=== PATIENT | female | born 1940 | race African-American/Black ===

== ENCOUNTER 2018-07-06 14:44 | Outpatient (CLI) | payer MEDICARE ==
--- NOTE | 2018-07-06 15:23 | RAD ---
CHEST TWO VIEWS: History: Chronic kidney disease. Anemia. FINDINGS: No comparison. Cardiac silhouette is unremarkable. Pulmonary vasculature upper limits of normal. Medi astinum is midline. No lobar consolidation, pneumothorax, or pleural fluid. Calcification over the ao rta. Motion artifact obscures detail on the lateral view. IMPRESSION: 1. Atherosclerosis. 2. No active cardiopulmonary abnormalities are otherwise demonstrated. POS: [facility]
== END 2018-07-06 14:45 | disposition home or self-care (01) ==
LOC: BICRAD 14:44
PROVIDERS: ATTEND Internal Medicine Medical Oncology
DX: N18.4 Chronic kidney disease, stage 4 (severe) (principal); D63.1 Anemia in chronic kidney disease; D50.0 Iron deficiency anemia secondary to blood loss (chronic); R11.2 Nausea with vomiting, unspecified; I70.0 Atherosclerosis of aorta
CPT/HCPCS: 36415; 71046; 82728

== ENCOUNTER 2018-11-16 16:18 | Observation (INO) | payer MEDICARE ==
[~2018-11-16 16:18] MED LIST: Heparin 10,000 UNITS/ 10 ML VIAL ONE
[2018-11-16 16:49] LABS: #Eosinphils 0.2 thou/uL (0.0-0.7); #Lymphocytes 0.8 thou/uL (1.20-3.40); #Monocytes 0.4 thou/uL (0.11-0.59); #Neutrophils 5.2 thou/uL (1.40-6.50); %Basophils 0.3 % (0.0-1.0); %Eosinophils 2.5 % (0.0-10.0); %Lymphocytes 12.5 % (21.0-51.0); %Monocytes 6.6 % (0.0-10.0); %Neutrophils 78.1 % (42.0-75.0); Hemoglobin 6.7 g/dL (12.0-16.0); Mean Corpuscular HGB CONC 32.7 g/dL (32.0-36.0); Mean Corpuscular Hemoglobin 30.1 pg (27.0-31.0); Mean Corpuscular Volume 92.1 fL (78.0-98.0); Mean Platelet Volume 7.6 fL (7.4-10.4); Platelet Count 187 thou/uL (130-400); RBC Distribution Width 15.9 % (11.5-14.5); Red Blood Cell (RBC) Count 2.21 mill/uL (4.20-5.40); White Blood Cell (WBC) Count 6.6 thou/uL (4.8-10.8)
--- NOTE | 2018-11-16 19:02 | RAD ---
XR Chest 1 View Portable History: [Shortness of breath] Comparison: Chest radiograph 2018 Findings: Dialysis catheter is in place with tip projecting over the azygos vein. Heart size is enlar ged. No pneumothorax. No effusion. No acute osseous abnormality. Impression: Dialysis catheter tip projecting over the azygos vein.
[2018-11-16 19:19] LABS: ALT (SGPT) 7 U/L (8-55); AST (SGOT) 9 U/L (5-34); Albumin 3.9 g/dL (3.4-4.8); Alkaline Phosphatase 58 U/L (40-150); Anion Gap 13 mmol/L (10-20); BUN (Urea Nitrogen) 32 mg/dL (9.8-20.1); Bilirubin, Total 0.3 mg/dL (0.2-1.2); Calc. Creatinine Clearance 0 mL/min (70-130); Calcium 8.7 mg/dL (7.8-10.44); Carbon Dioxide 28 mmol/L (23-31); Chloride 98 mmol/L (98-107); Estimated GFR-MDRD 13; Globulin 2.2 g/dL (2.4-3.5); Glucose 259 mg/dL (83-110); Potassium 4.5 mmol/L (3.5-5.1); Protein, Total 6.1 g/dL (6.0-8.3); Sodium 134 mmol/L (136-145)
[2018-11-16] MEDS ORDERED: Nitroglycerin 2% Ointment 1 INCH/1 GM Packet ONE ×2 (19:24→19:49)
[2018-11-16] MEDS ORDERED: Ondansetron PF 4 MG/2 ML Vial IVP PRN (19:58)
[2018-11-16] MEDS ORDERED: Acetaminophen 325 MG TAB PO PRN (19:58)
[2018-11-16] MEDS ORDERED: Ondansetron ODT 4 MG TAB PO PRN (19:58)
[2018-11-16 20:23] LABS: Hemoglobin 6.6 g/dL (12.0-16.0)
[2018-11-16] MEDS ORDERED: HumaLOG 300 UNITS/3 ML VIAL SC PRN (20:32)
[2018-11-16] MEDS ORDERED: Dextrose 50% Abboject 50 ML SYRINGE SLOW IVP PRN (20:32)
[2018-11-16] MEDS ORDERED: Dextrose 5% in Water 1,000 ML IV PRN (20:32)
[2018-11-16] MEDS ORDERED: Heparin 5,000 UNITS/ML VIAL SC SCH (21:00)
--- NOTE | 2018-11-16 21:25 | HP ---
PRIMARY CARE DOCTOR: Ana Dawson MD CODE STATUS: Full code. TIME OF EVALUATION: 7:40 p.m. CHIEF COMPLAINT: Shortness of breath and chest pain on exertion. HISTORY OF PRESENT ILLNESS: This is a 77-year-old female patient with past medical history of end-stage renal disease, chronic anemia, obese, started on hemodialysis on September, history of coronary artery disease, and diabetes, came to the hospital after having chest pain and shortness of breath with exertion that improved with rest. The patient reported this has happened in the past when she had a low hemoglobin. Dr. Issa has seen the patient and has sent the patient to the ER since it was found that the patient has severe anemia with hemoglobin in the range of 6. The symptoms were moderate to severe, limiting the patient's activities of daily living. REVIEW OF SYSTEMS: CONSTITUTIONAL: No fever or chills. The patient reported generalized weakness. RESPIRATORY: The patient had cough with scant, whitish sputum production, shortness of breath with exertion. CARDIOVASCULAR: Chest pain with exertion. No palpitation. GASTROINTESTINAL: No nausea, no vomiting, diarrhea, or abdominal pain. CAMPUS SAFETY OFFICER: No dizziness, headache, or feeling lightheaded. GENITOURINARY: No burning on urination. EXTREMITIES: Bilateral leg swelling. All other systems were reviewed and negative except for the findings as mentioned above. PAST MEDICAL HISTORY: As mentioned in the HPI. PAST SURGICAL HISTORY: Positive for cardiac stents x3, breast lumpectomy, and hysterectomy. PSYCH HISTORY: No previous psych history. SOCIAL HISTORY: No alcohol. No drugs. No smoking history. Lives at home with family. FAMILY HISTORY: Mother has diabetes and coronary artery disease. and father had heart problems. KNOWN ALLERGIES: Penicillin and sulfa. REPORTED MEDICATIONS: 1. Amlodipine. 2. Cetirizine. 3. Flonase. 4. Hydralazine. 5. Simvastatin. 6. Ranitidine. 7. Allopurinol. 8. Flecainide. 9. Benzonatate. 10. Terazosin. 11. Montelukast. PHYSICAL EXAMINATION: VITAL SIGNS: On presentation, blood pressure 167/57, heart rate 65, respiratory rate was 20, temperature 98.2, pain 0/10, and oxygen saturation was 99% on room air. GENERAL APPEARANCE: The patient is alert, oriented, not in acute distress. HEENT: Eyes, normal conjunctivae. Moist oral mucosa. Anicteric. No JVD. RESPIRATORY: Bilateral air entry. No rales. No wheezes. Symmetric expansion. CARDIOVASCULAR: Normal rate. Regular rhythm. No murmurs. No gallop. Leg edema 4+. ABDOMEN: Soft, normal bowel sounds. MUSCULOSKELETAL: Baseline range of motion and strength. No tenderness. SKIN: Warm, intact. No pallor. No rash. No redness. Peripheral pulses are present. Capillary refill seems to be intact. NEUROLOGIC: No evidence of any new focal weakness. Baseline speech. Cranial nerves seems to be intact. PSYCH: The patient is in good mood. No anxiety. Optimal judgment. IMAGING STUDIES: EKG was reviewed. The patient has normal sinus rhythm with a rate of 66 with NE 160, QRS 128, LBBB, QT corrected 475. Chest x-ray was reviewed. The patient has dialysis catheter tip projected with azygos vein. LABORATORY DATA: Labs were reviewed. The patient has white count 6.6; hemoglobin 6.7, second one 6.6; MCV 92; and platelet count 287. Chemistry; sodium 134, potassium 4.5, chloride 98, carbon dioxide 28, anion gap 13, BUN 32, creatinine 4.07, GFR 13, glucose 259, calcium 8.7, and total bilirubin 0.3. LFTs were negative. Troponin was negative. Beta natriuretic peptide 349. Serum total protein 6.1, albumin 3.9, globulin 2.2, and albumin to globulin ratio 1.8. ASSESSMENT AND PLAN: The patient will be placed in the hospital with following medical problems: 1. End-stage renal disease with chronic anemia. The patient follows with Dr. Issa as outpatient, on hemodialysis. We will need to hemolyze this patient. We will consult Dr. Issa for recommendations. 2. Symptomatic anemia. The patient has severe anemia with hemoglobin of 6.7 and dyspnea and chest pain on exertion that improved with rest. We will give blood transfusion with dialysis, and the patient seems to be in fluid overload. 3. Hyponatremia, sodium 139. This is likely dilutional. The patient will need hemodialysis. We will follow recommendations from Nephrology. No need for any further intervention at this point. 4. Coronary artery disease. This problem is chronic, seems to be stable. Chest pain likely related to severe anemia. We will treat underlying condition. 5. Uncontrolled diabetes. The patient presented with hyperglycemia and glucose 259. We will reconcile home medications, and we will place the patient on sliding scale. 6. Hyperlipidemia. Low-cholesterol diet is advised. 7. History of gout. Reconcile home medications. 8. Uncontrolled hypertension. Reconcile home medications. Adjust as needed. 9. Deep venous thrombosis prophylaxis. Job ID: [id number]
--- NOTE | 2018-11-16 22:04 | CON ---
DATE OF CONSULTATION: REASON FOR CONSULTATION: Stage 3 chronic kidney disease, anemia, as well as congestive heart failure. HISTORY: A 77-year-old female with a history of congestive heart failure, and thyroid surgery, presented to the hospital after noted to have a hemoglobin of less than 7 and dyspnea on exertion. The patient has a history of breast cancer and was advised not to get erythropoietin stimulating agent. PAST MEDICAL HISTORY: Breast cancer, hypertension, diabetes mellitus, coronary artery disease, congestive heart failure, stage 2 chronic kidney disease. PAST SURGICAL HISTORY: Reviewed. HOME MEDICATION: List reviewed. HOSPITAL MEDICATIONS: Reviewed. ALLERGIES: REVIEWED. REVIEW OF SYSTEMS: A 15-point review of systems was performed, negative except for positives noted above. GENERAL: HEAD: NECK: No swelling or lumps. NOSE: No epistaxis or discharge. EYES: No diplopia or pain. RESPIRATORY: CARDIOVASCULAR: GASTROINTESTINAL: /SHOES SALESPERSON: MUSCULOSKELETAL: No joint pain. NEUROPSYCHIATIC SYSTEMS: No suicidal ideation. No ideation. SKIN: Denies any rash or ulcer. CONSTITUTIONAL: No fever or chills. OBJECTIVE: CONSTITUTIONAL: Awake, alert, in no acute distress. VITAL SIGNS: Afebrile, pulse 75, breathing 16, blood pressure 130/85. GENERAL APPEARANCE AND MENTAL STATUS: Fair. HEAD/NECK: Normocephalic. Atraumatic. EYES: EOMI. No deformity. EARS: Clear. No ulcers. NOSE: Intact. No lesions. MOUTH: Clear. No discharge. THROAT: Clear. No exudate. LUNGS: Clear. No crackles. CARDIAC: S1, S2. No rub. ABDOMEN: Benign. Bowel sounds positive. GENITALIA/RECTUM: Rios absent. BACK/EXTREMITIES: Edema 0+. NEUROLOGICAL: Alert and motor intact. SKIN: LYMPHATICS: LABORATORY DATA: Reviewed. ASSESSMENT AND PLAN: 1. Stage 6 chronic kidney disease with volume overload and anemia. Plan dialysis and transfusion. 2. Anemia. Plan, transfusion with dialysis. 3. Hypertension, stable. Medication based on GFR appropriate. Job ID: [id number]
[2018-11-16 22:54] LABS: HBSAB Concentration 3.64 mIU/mL; Hep B Surf AB Non-Reactive (NonReactive)
[2018-11-17] LABS: Hep B Surf Ag NonReactive S/CO (NonReactive)
[2018-11-17 00:01] LABS: HBSAg Index 0.51 S/CO (0-0.99)
[2018-11-17 02:02] VITALS: BMI 38.3
[2018-11-17 02:45] LABS: #Eosinphils 0.2 thou/uL (0.0-0.7); #Lymphocytes 0.9 thou/uL (1.20-3.40); #Monocytes 0.5 thou/uL (0.11-0.59); #Neutrophils 4.7 thou/uL (1.40-6.50); %Basophils 0.7 % (0.0-1.0); %Eosinophils 2.7 % (0.0-10.0); %Lymphocytes 14.3 % (21.0-51.0); %Monocytes 8.1 % (0.0-10.0); %Neutrophils 74.2 % (42.0-75.0); Hemoglobin 8.1 g/dL (12.0-16.0); Mean Corpuscular HGB CONC 33.2 g/dL (32.0-36.0); Mean Corpuscular Volume 90.4 fL (78.0-98.0); Mean Platelet Volume 7.6 fL (7.4-10.4); Platelet Count 184 thou/uL (130-400); RBC Distribution Width 15.6 % (11.5-14.5); Red Blood Cell (RBC) Count 2.68 mill/uL (4.20-5.40); White Blood Cell (WBC) Count 6.3 thou/uL (4.8-10.8)
[2018-11-17 03:21] LABS: Anion Gap 13 mmol/L (10-20); BUN (Urea Nitrogen) 19 mg/dL (9.8-20.1); Calc. Creatinine Clearance 30 mL/min (70-130); Calcium 8.8 mg/dL (7.8-10.44); Carbon Dioxide 28 mmol/L (23-31); Chloride 100 mmol/L (98-107); Estimated GFR-MDRD 20; Glucose 275 mg/dL (83-110); Potassium 3.9 mmol/L (3.5-5.1); Sodium 137 mmol/L (136-145)
[2018-11-17] MEDS ORDERED: Loperamide HCl 2 MG CAP PO PRN (07:43)
[2018-11-17] MEDS ORDERED: hydrALAZINE 20 MG/ML VIAL SLOW IVP PRN (07:43)
[2018-11-17] MEDS ORDERED: Loratadine 10 MG TAB PO PRN (07:43)
[2018-11-17] MEDS ORDERED: Bisacodyl 5 MG TAB PO PRN (07:43)
[2018-11-17] MEDS ORDERED: Artificial Tears 18 DROP/0.9 ML EA EYE PRN (07:43)
[2018-11-17] MEDS ORDERED: Diabetic Tussin 200 MG/10 ML UDCUP PO PRN (07:43)
[2018-11-17] MEDS ORDERED: Cepastat Lozenges 1 LOZ PO PRN (07:43)
[2018-11-17] MEDS ORDERED: Eucerin (Mineral Oil/Petrolatum,White) 30 gm Jar TOP PRN (07:43)
[2018-11-17] MEDS ORDERED: Sodium Chloride 0.65% Nasal 44 ML BOT EA NARE PRN (07:43)
[2018-11-17] MEDS ORDERED: Zolpidem Tartrate 5 MG TAB PO PRN (07:43)
[2018-11-17] MEDS ORDERED: Ferrous Sulfate 325 MG TAB PO SCH (08:00)
[2018-11-17] MEDS ORDERED: Heparin 10,000 UNITS/ 10 ML VIAL ONE (08:04)
[2018-11-17] MEDS: Flecainide 50 MG TAB PO SCH ×2 (08:13→20:02)
[2018-11-17] MEDS: hydrALAZINE 25 MG TAB PO SCH ×3 (08:13→20:01)
[2018-11-17] MEDS: Amlodipine 5 MG TAB PO SCH ×2 (08:13→20:04)
[2018-11-17 08:37] LABS: Iron 59 ug/dL (50-170); Iron Binding Capacity, Total 300 mcg/dL (265-497)
[2018-11-17] MEDS ORDERED: Terazosin HCl 1 MG CAP PO SCH (09:00)
[2018-11-17] MEDS ORDERED: Allopurinol 100 MG TAB PO SCH (09:00)
[2018-11-17] MEDS ORDERED: Montelukast Sodium 10 mg Tablet PO SCH (09:00)
[2018-11-17] MEDS ORDERED: Senokot S 8.6-50 MG TAB PO PRN (09:00)
[2018-11-17 09:02] LABS: Ferritin 128.25 ng/mL (10-291); Thyroid Stimulating Hormone 1.6101 uIU/mL (0.35-4.94)
[2018-11-17] MEDS: Fluticasone Propionate Nasal Spray 16 gm Bottle NASAL SCH ×2 (09:22→20:06)
[2018-11-17] MEDS ORDERED: Iron, Sodium Ferric Gluconate 250 MG in Sodium Chloride 0.9% 250 ML 250 ML IVPB SCH (10:30)
--- NOTE | 2018-11-17 10:37 | PRG ---
DATE OF SERVICE: 11/17/2018 SUBJECTIVE: A 77-year-old female, being seen for end-stage renal disease. The patient denied nausea, vomiting, or chest pain. OBJECTIVE: CONSTITUTIONAL: The patient is awake and alert. VITAL SIGNS: Afebrile. Pulse 56, breathing 16, blood pressure GENERAL APPEARANCE AND MENTAL STATUS: Fair. HEAD/NECK: Normocephalic. Atraumatic. EYES: EOMI. No deformity. EARS: Clear. No ulcers. NOSE: Intact. No lesions. MOUTH: Clear. No discharge. THROAT: Clear. No exudate. LUNGS: Clear. No crackles. CARDIAC: S1, S2. No rub. ABDOMEN: Benign. Bowel sounds positive. GENITALIA/RECTUM: Rios absent. BACK/EXTREMITIES: Edema 0+. NEUROLOGICAL: Alert and motor intact. SKIN: LYMPHATICS: LABORATORY DATA: Labs showed hemoglobin 8. ASSESSMENT AND PLAN: 1. Stage 6 chronic kidney disease, plan dialysis per schedule. 2. Anemia. We will transfuse one more unit. 3. Hypertension, stable. 4. Medications based on GFR appropriate. Job ID: [id number]
--- NOTE | 2018-11-17 10:49 | PDOC.PN ---
- Subjective Encounter Start Date: 11/17/18 Encounter Start Time: 09:00 -: old records requested/rev Patient seen and examined. No new complaints. No overnight events - Objective Resuscitation Status - Order Detail: 11/16/18 19:58 Resuscitation Status Routine Resuscitation Status: FULL: Full Resuscitation MAR Reviewed: Yes Vital Signs & Weight: Vital Signs (12 hours) Temp Pulse Resp BP Pulse Ox 11/17/18 08:13 56 L 11/17/18 07:36 98.6 F 56 L 16 124/61 97 11/17/18 04:46 98.4 F 63 18 153/52 H 95 11/17/18 00:45 98.1 F 61 18 157/52 H 96 Weight Weight 245 lb I&O: 11/16/18 11/17/18 11/18/18 06:59 06:59 06:59 Intake Total 410 240 Balance 410 240 Result Diagrams: 11/17/18 08:00 11/17/18 02:35 Additional Labs: Accuchecks 11/17/18 11/17/18 04:50 01:17 POC Glucose 295 H 181 H Phys Exam - Physical Examination Constitutional: NAD HEENT: PERRLA, moist MMs, sclera anicteric Neck: no JVD, supple Respiratory: no wheezing, no rales, no rhonchi Cardiovascular: RRR, no significant murmur, no rub Gastrointestinal: soft, non-tender, no distention, positive bowel sounds obesity+ Musculoskeletal: no edema, pulses present Neurological: non-focal, normal sensation, moves all 4 limbs Lymphatic: no nodes Psychiatric: normal affect, A&O x 3 Skin: no rash, normal turgor Dx/Plan (1) Symptomatic anemia Code(s): D64.9 - ANEMIA, UNSPECIFIED Status: Acute (2) Asthma Code(s): J45.909 - UNSPECIFIED ASTHMA, UNCOMPLICATED Status: Chronic (3) CAD (coronary artery disease) Code(s): I25.10 - ATHSCL HEART DISEASE OF [place] CORONARY ARTERY W/O ANG PCTRS Status: Chronic (4) Dyslipidemia Code(s): E78.5 - HYPERLIPIDEMIA, UNSPECIFIED Status: Chronic (5) ESRD (end stage renal disease) on dialysis Code(s): N18.6 - END STAGE RENAL DISEASE; Z99.2 - DEPENDENCE ON RENAL DIALYSIS Status: Chronic (6) GERD (gastroesophageal reflux disease) Code(s): K21.9 - GASTRO-ESOPHAGEAL REFLUX DISEASE WITHOUT ESOPHAGITIS Status: Chronic (7) Gout Code(s): M10.9 - GOUT, UNSPECIFIED Status: Chronic (8) Hypertension Code(s): I10 - ESSENTIAL (PRIMARY) HYPERTENSION Status: Chronic (9) Obesity (BMI 30-39.9) Code(s): E66.9 - OBESITY, UNSPECIFIED Status: Chronic - Plan cont current plan of care, plan discussed w/ family * iron study ordered * will give one dose of venofer * nephrology transfusing one PRBC today with HD * she had colonoscopy done in 2 years and she is advised to follow up with her GI Dr Kinney for possible need of repeat testing vs capsule endoscopy * possible discharge to later on today if OK. * medication reviewed as below * symptomatic treatment Review of Systems - Review of Systems ENT: negative: Ear Pain, Ear Discharge, Nose Pain, Nose Discharge, Nose Congestion, Mouth Pain, Mouth Swelling, Throat Pain, Throat Swelling, Other Respiratory: negative: Cough, Dry, Shortness of Breath, Hemoptysis, SOB with Excertion, Pleuritic Pain, Sputum, Wheezing Cardiovascular: negative: chest pain, palpitations, orthopnea, paroxysmal nocturnal dyspnea, edema, light headedness, other Gastrointestinal: negative: Nausea, Vomiting, Abdominal Pain, Diarrhea, Constipation, Melena, Hematochezia, Other Genitourinary: negative: Dysuria, Frequency, Incontinence, Hematuria, Retention , Other Musculoskeletal: negative: Neck Pain, Shoulder Pain, Arm Pain, Back Pain, Hand Pain, Leg Pain, Foot Pain, Other Skin: negative: Rash, Lesions, Reece, Bruising, Other - Medications/Allergies Allergies/Adverse Reactions: Allergies Allergy/AdvReac Type Severity Reaction Status Date / Time Penicillins Allergy Verified 11/17/18 02:06 Sulfa (Sulfonamide Allergy Verified 11/17/18 02:06 Antibiotics) Medications: Current Medications Acetaminophen (Tylenol) 650 mg PO Q4H PRN PRN Reason: Headache/Fever/Mild Pain (1-3) Last Admin: 11/17/18 04:53 Dose: 650 mg Albuterol/Ipratropium (Duoneb) 3 ml NEB Q6H PRN PRN Reason: SOB &/or Wheezing Allopurinol (Zyloprim) 100 mg PO DAILY [facility] Last Admin: 11/17/18 08:12 Dose: 100 mg Amlodipine Besylate (Norvasc) 2.5 mg PO BID [facility] Last Admin: 11/17/18 08:13 Dose: 2.5 mg Artificial Tears (Tears Naturale) 2 drop EA EYE PRN PRN PRN Reason: Dry Eyes Atorvastatin Calcium (Lipitor) 20 mg PO [facility] Bisacodyl (Dulcolax) 10 mg PO DAILYPRN PRN PRN Reason: Constipation Dextrose/Water (Dextrose 50%) 25 gm SLOW IVP PRN PRN PRN Reason: Hypoglycemia Ferrous Sulfate (Feosol) 325 mg PO [facility] Last Admin: 11/17/18 08:13 Dose: 325 mg Flecainide Acetate (Tambocor) 100 mg PO BID [facility] Last Admin: 11/17/18 08:13 Dose: 100 mg Fluticasone Propionate (Flonase Nasal Malcolm) 0 gm NASAL BID [facility] Last Admin: 11/17/18 09:22 Dose: 1 spr Glucagon (Glucagon) 1 mg IM PRN PRN PRN Reason: Hypoglycemia Guaifenesin (Robitussin Sf) 200 mg PO Q4H PRN PRN Reason: Cough Hydralazine HCl (Apresoline) 50 mg PO TID [facility] Last Admin: 11/17/18 08:13 Dose: 50 mg Hydralazine HCl (Apresoline) 10 mg SLOW IVP Q4H PRN PRN Reason: SBP > 180 and HR < 70 Dextrose/Water (D5w) 1,000 mls @ 0 mls/hr IV .Q0M PRN PRN Reason: Hypoglycemia Ferric Sodium Gluconate Complex 250 mg/ Sodium Chloride 270 mls @ 129.808 mls/ hr IVPB NOW [facility] Stop: 11/17/18 13:30 Insulin Human Lispro (Humalog) 0 units SC .MILD SLIDING SCALE PRN PRN Reason: Mild Correctional Scale Loperamide HCl (Imodium) 2 mg PO PRN PRN PRN Reason: Diarrhea/Loose Stools Loratadine (Claritin) 10 mg PO DAILYPRN PRN PRN Reason: Sinus Symptoms Mineral Oil/White Petrolatum (Eucerin Cream) 0 gm TOP BIDPRN PRN PRN Reason: Dry Skin Montelukast Sodium (Singulair) 10 mg PO DAILY [facility] Last Admin: 11/17/18 08:13 Dose: 10 mg Ondansetron HCl (Zofran Odt) 4 mg PO Q6H PRN PRN Reason: Nausea/Vomiting Ondansetron HCl (Zofran) 4 mg IVP Q6H PRN PRN Reason: Nausea/Vomiting Senna/Docusate Sodium (Senokot S) 2 tab PO BID PRN PRN Reason: Constipation Sodium Chloride ([place] Nasal Malcolm 0.65%) 0 ml EA NARE QIDPRN PRN PRN Reason: Nasal Congestion Terazosin HCl (Hytrin) 4 mg PO DAILY [facility] Last Admin: 11/17/18 09:21 Dose: 4 mg Throat Lozenges (Cepastat Lozenges) 1 sara PO Q2H PRN PRN Reason: Sore Throat Zolpidem Tartrate (Ambien) 5 mg PO HSPRN PRN PRN Reason: Insomnia
[2018-11-17] MEDS ORDERED: Iron, Sodium Ferric Gluconate 250 MG in Sodium Chloride 0.9% 100 ML IVPB SCH (11:00)
--- NOTE | 2018-11-17 12:12 | DIS ---
DATE OF ADMISSION: 11/16/2018 DATE OF DISCHARGE: 11/17/2018 PRIMARY CARE PHYSICIAN: Ana Dawson MD DISCHARGE DISPOSITION: Home. PRIMARY DISCHARGE DIAGNOSIS: Symptomatic anemia status post transfusion. SECONDARY DISCHARGE DIAGNOSES: 1. Obesity with BMI of 38. 2. Hypertension. 3. Gout. 4. Gastroesophageal reflux disease. 5. ESRD, on hemodialysis. 6. Dyslipidemia. 7. Coronary artery disease. 8. Asthma. PRIMARY PROCEDURE/OPERATION: Maintenance hemodialysis. RADIOLOGICAL INVESTIGATION: Chest x-ray. SIGNIFICANT LABORATORY DATA: Hemoglobin 8.0, creatinine 2.85, ferritin 128, and TSH 1.61. DISCHARGE MEDICATIONS: 1. Allopurinol 100 mg daily. 2. Norvasc 2.5 mg b.i.d. 3. Cetirizine 10 mg daily. 4. Tessalon 200 mg t.i.d. p.r.n. 5. Flecainide 100 mg b.i.d. 6. Flonase nasal spray daily. 7. Hydralazine 50 mg t.i.d. 8. Singulair 10 mg daily. 9. Ranitidine 150 mg p.o. b.i.d. 10. Zocor 40 mg p.o. nightly. 11. Terazosin 2 mg p.o. daily. 12. Ferrous sulfate 325 mg p.o. daily. CONTRAINDICATION: None. CODE STATUS: Full code. INPATIENT BOLT HEADER: Dr. Issa. TEST RESULTS PENDING ON DISCHARGE: None. ALLERGIES: PENICILLIN AND SULFA DRUGS. DISCHARGE PLAN: Posthospital, the patient will follow up with Dr. Ana Dawson. The patient will follow up with Dr. Dawson, electrical and instrument mechanic as well. HOSPITAL COURSE: A 77-year-old female, who was admitted by Dr. Chung. Please see his H and P for further details. The patient was admitted for symptomatic anemia. Her hemoglobin was 6.6 while in hospital. She required total 2 units of blood transfusion and she is also going to get another unit of blood transfusion today and she is also receiving iron infusion. This patient already had colonoscopy within a couple of years. It showed some AV malformation, which was cauterized by Dr. Dawson as per the patient. This patient, I am suspecting that she might have chronic oozing of blood as well as she has ESRD and that is also contributing to her anemia. She stopped taking Procrit injection after diagnosis of breast cancer. At this point, the patient has given enough blood transfusion and she will follow up with electrical and instrument mechanic as an outpatient basis. She does not prefer anything to be done while in hospital other than symptomatic treatment. While in hospital, she had dialysis by Dr. Issa. The patient is seen and examined at bedside today. Please see my progress note from today for further detail. Job ID: [id number]
[2018-11-17 14:19] LABS: Hemoglobin 8.3 g/dL (12.0-16.0)
[2018-11-17 20:00] VITALS: BP 147/62; TEMP 98.3
[2018-11-17] MEDS ORDERED: Atorvastatin Calcium 20 MG TAB PO SCH (21:00)
== END 2018-11-17 20:45 | disposition home or self-care (01) ==
LOC: ERS 16:18 → T4-B 19:30
PROVIDERS: ADMIT Hospitalist; ATTEND Hospitalist
DX: I13.11 Hypertensive heart and chronic kidney disease without heart failure, with stage 5 chronic kidney disease, or end stage renal disease (principal); E11.22 Type 2 diabetes mellitus with diabetic chronic kidney disease; N18.6 End stage renal disease; I50.9 Heart failure, unspecified; D63.1 Anemia in chronic kidney disease; E66.9 Obesity, unspecified; E78.5 Hyperlipidemia, unspecified; I25.10 Atherosclerotic heart disease of native coronary artery without angina pectoris; J45.909 Unspecified asthma, uncomplicated; Z68.38 Body mass index [BMI] 38.0-38.9, adult; Z79.51 Long term (current) use of inhaled steroids; Z79.899 Other long term (current) drug therapy; Z88.0 Allergy status to penicillin; Z88.2 Allergy status to sulfonamides; Z99.2 Dependence on renal dialysis
CPT/HCPCS: 36430; 71045; 80048; 80053; 82728; 82962; 83540; 83550; 83880; 84443; 84484; 85014 ×2; 85018 ×2; 85025 ×2; 86706; 86850; 86900; 86901; 86920; 87340; 93005; 94640; 99285; G0378 ×2; P9016 ×2; 36415; 36416; 90935; G0257; J1644; J2916; J3490; J7050; J7620

== ENCOUNTER 2018-12-11 11:49 | Emergency (ER) | payer MEDICARE ==
[2018-12-11 12:39] LABS: #Eosinphils 0.1 thou/uL (0.0-0.7); #Lymphocytes 0.9 thou/uL (1.20-3.40); #Monocytes 0.4 thou/uL (0.11-0.59); #Neutrophils 4.3 thou/uL (1.40-6.50); %Basophils 0.1 % (0.0-1.0); %Eosinophils 2.6 % (0.0-10.0); %Lymphocytes 15.1 % (21.0-51.0); %Monocytes 6.9 % (0.0-10.0); %Neutrophils 75.2 % (42.0-75.0); Mean Corpuscular HGB CONC 33.3 g/dL (32.0-36.0); Mean Corpuscular Hemoglobin 30.4 pg (27.0-31.0); Mean Corpuscular Volume 91.3 fL (78.0-98.0); Mean Platelet Volume 7.1 fL (7.4-10.4); Platelet Count 186 thou/uL (130-400); RBC Distribution Width 14.1 % (11.5-14.5); Red Blood Cell (RBC) Count 2.64 mill/uL (4.20-5.40); White Blood Cell (WBC) Count 5.7 thou/uL (4.8-10.8)
[2018-12-11 13:01] LABS: ALT (SGPT) Less than 7 U/L (8-55); AST (SGOT) 11 U/L (5-34); Albumin 3.9 g/dL (3.4-4.8); Alkaline Phosphatase 50 U/L (40-150); Anion Gap 9 mmol/L (10-20); BUN (Urea Nitrogen) 15 mg/dL (9.8-20.1); Bilirubin, Total 0.4 mg/dL (0.2-1.2); Calc. Creatinine Clearance 0 mL/min (70-130); Calcium 8.9 mg/dL (7.8-10.44); Carbon Dioxide 31 mmol/L (23-31); Chloride 99 mmol/L (98-107); Estimated GFR-MDRD 24; Globulin 2.5 g/dL (2.4-3.5); Glucose 126 mg/dL (83-110); Potassium 3.6 mmol/L (3.5-5.1); Protein, Total 6.4 g/dL (6.0-8.3); Sodium 135 mmol/L (136-145)
[2018-12-11] MEDS ORDERED: Heparin 10,000 UNITS/ 10 ML VIAL ONE (15:00)
--- NOTE | 2018-12-11 16:19 | RAD ---
Chest AP view INDICATION: Dyspnea on exertion COMPARISON: November 16, 2018 FINDINGS: Lungs:No confluent airspace opacity is present. Cardiac silhouette pulmonary vasculature:Moderate cardiomegaly and mild pulmonary vascular congestion are stable. There is a stable left IJ dialysis catheter. Pleural spaces:No pleural effusion or pneumothorax is demonstrated. Upper abdomen:No abnormality seen. Osseous structures: No acute osseous abnormality. Additional findings:None. IMPRESSION: Stable moderate cardiomegaly and mild pulmonary vascular congestion.
== END 2018-12-11 20:14 | disposition home or self-care (01) ==
LOC: ERS 11:49
DX: D64.9 Anemia, unspecified (principal); N18.6 End stage renal disease; I25.10 Atherosclerotic heart disease of native coronary artery without angina pectoris; E11.22 Type 2 diabetes mellitus with diabetic chronic kidney disease; I50.9 Heart failure, unspecified; J44.9 Chronic obstructive pulmonary disease, unspecified; J45.909 Unspecified asthma, uncomplicated; Z79.899 Other long term (current) drug therapy
CPT/HCPCS: 36430; 71045; 80053; 82962; 84484; 85025; 86850; 86900; 86901; 86920; 93005; 94640; P9016; 36415; 36416; J1644; J7620

== ENCOUNTER 2019-01-23 06:40 | Outpatient (CLI) | payer MEDICARE ==
--- NOTE | 2019-01-23 09:52 | CT ---
CT ABDOMEN AND PELVIS PERFORMED WITH AND WITHOUT CONTRAST ENHANCEMENT: Date: 01/23/19 HISTORY: Hematuria. Patient is also on dialysis. FINDINGS: The lung bases are clear. The liver, spleen, pancreas, and gallbladder regions appear unremarkable. Right and left adrenal glands, and right and left kidneys are within normal limits of size. There are no renal calculi demonstrated. There is somewhat diminished excretion with some contrast seen in the left collecting system. No definite contrast within the right collecting system on the portal venous phase imaging. No cystic or solid masses. Kidneys are within normal limits of size, slightly larger than right, somewhat difficult to measure due to the obliquity. There is no significant periaortic or mesenteric adenopathy. Small hiatal hernia is present. CT of pelvis was performed with and without contrast enhancement. The bladder is never fully distende d. There is no adenopathy, mass, or free fluid. IMPRESSION: 1. Diminished excretion from the kidneys consistent with history of dialysis. No renal calculi and n o evidence of any masses. 2. Small hiatal hernia. POS: OFF
== END 2019-01-23 06:41 | disposition home or self-care (01) ==
LOC: SCSCT 06:40
PROVIDERS: ATTEND Urology
DX: R31.9 Hematuria, unspecified (principal); K44.9 Diaphragmatic hernia without obstruction or gangrene; Z99.2 Dependence on renal dialysis
CPT/HCPCS: 74178

== ENCOUNTER 2019-09-26 11:27 | Outpatient (CLI) | payer MEDICARE ==
--- NOTE | 2019-09-26 11:44 | RAD ---
XR Chest Pa Lat @ [facility] HISTORY: Dyspnea COMPARISON: 12/11/2018 exam. FINDINGS: Heart size is within normal limits. There are atherosclerotic changes of the aorta. A right -sided brachiocephalic stent is noted. The lungs are clear of infiltrative process. IMPRESSION: No active intrathoracic disease.
== END 2019-09-26 11:28 | disposition home or self-care (01) ==
LOC: RAD 11:27
PROVIDERS: ATTEND Internal Medicine Critical Care Medicine
DX: R06.00 Dyspnea, unspecified (principal)
CPT/HCPCS: 71046

== ENCOUNTER 2021-08-26 11:26 | Outpatient (CLI) | payer MEDICARE | END 2021-08-26 11:27 | disposition home or self-care (01) | LOC: SCSMRI 11:26 | PROVIDERS: ATTEND Internal Medicine | DX: M47.22 Other spondylosis with radiculopathy, cervical region (principal) | CPT/HCPCS: 72141 ==

== ENCOUNTER 2023-02-22 09:08 | Outpatient (CLI) | payer MEDICARE | END 2023-02-22 09:09 | disposition home or self-care (01) | LOC: RAD 09:08 | PROVIDERS: ATTEND Internal Medicine Critical Care Medicine | DX: R06.00 Dyspnea, unspecified (principal) | CPT/HCPCS: 36415; 71046; 80053; 80061; 81001; 83036; 84443; 87086 ==

== ENCOUNTER 2024-04-27 22:23 | Inpatient (IN) | payer MEDICARE ==
[2024-04-27 23:52] VITALS: BMI 34.9
[2024-04-28] MEDS ORDERED: Dextrose 50% Abboject 50 ML SYRINGE SLOW IVP PRN (00:03)
[2024-04-28] MEDS ORDERED: Acetaminophen 325 MG TAB PO PRN (00:03)
[2024-04-28] MEDS ORDERED: Dextrose 5% in Water 1,000 ML IV PRN (00:03)
[2024-04-28] MEDS ORDERED: Glucagon 1 MG/ML KIT IM PRN (00:03)
[2024-04-28] MEDS ORDERED: Ondansetron ODT 4 MG TAB PO PRN (00:03)
[2024-04-28] MEDS ORDERED: Ondansetron PF 4 MG/2 ML Vial IVP PRN (00:03)
[2024-04-28] MEDS: Insulin Lispro 100 UNIT/ML 10 ML VIAL SC PRN ×2 (00:39→06:31)
[2024-04-28 00:47] LABS: #Basophils 0.03 10x3/uL (0.0-0.2); %Basophils 0.6 % (0.0-1.0); %Eosinophils 2.2 % (0.0-10.0); %Lymphocytes 12.2 % (21.0-51.0); %Monocytes 8.8 % (0.0-10.0); Hematocrit 22.1 % (36.0-47.0); Hemoglobin 6.9 g/dL (12.0-16.0); Mean Corpuscular HGB CONC 31.2 g/dL (32.0-36.0); Mean Corpuscular Hemoglobin 29.2 pg (27.0-31.0); Mean Corpuscular Volume 93.6 fL (78.0-98.0); Mean Platelet Volume 10.3 fL (7.4-10.4); Platelet Count 178 10x3/uL (130-400); RBC Distribution Width 15.6 % (11.5-14.5); Red Blood Cell (RBC) Count 2.36 mill/uL (4.20-5.40)
[2024-04-28 00:52] LABS: Prothrombin Time 12.9 sec (12.0-14.7)
[2024-04-28 00:53] LABS: PTT 25.8 sec (22.9-36.1)
[2024-04-28 01:38] LABS: Anion Gap 15 mmol/L (10-20); BUN (Urea Nitrogen) 25 mg/dL (9.8-20.1); Calc. Creatinine Clearance 16 mL/min (70-130); Calcium 8.7 mg/dL (7.8-10.44); Carbon Dioxide 28 mmol/L (23-31); Chloride 97 mmol/L (98-107); Estimated GFR 9; Glucose 351 mg/dL (83-110); Iron 30 ug/dL (50-170); Iron Binding Capacity, Total 203 mcg/dL (265-497); Sodium 136 mmol/L (136-145)
[2024-04-28] MEDS: Ipratropium/Albuterol 3 ML NEB NEB PRN (02:19)
[2024-04-28 08:14] LABS: Hematocrit 25.5 % (36.0-47.0); Hemoglobin 8.2 g/dL (12.0-16.0)
[2024-04-28] MEDS: Montelukast Sodium 10 mg Tablet PO SCH (08:57)
[2024-04-28] MEDS: hydrALAZINE 25 MG TAB PO SCH (08:57)
[2024-04-28] MEDS: Loratadine 10 MG TAB PO SCH (08:57)
[2024-04-28] MEDS: Amlodipine 10 MG TAB PO SCH (08:58)
[2024-04-28] MEDS: Amiodarone 200 MG TAB PO SCH (08:58)
[2024-04-28] MEDS: Fluticasone Propionate Nasal Spray 16 gm Bottle NASAL SCH (08:59)
[2024-04-28] MEDS: Pantoprazole 40 MG VIAL IVP SCH (08:59)
[2024-04-28] MEDS: Sodium Ferric Gluconate 125 MG in Sodium Chloride 0.9% 100 ML IVPB SCH (08:59)
[2024-04-28] MEDS ORDERED: Sodium Ferric Gluconate 125 MG in Sodium Chloride 0.9% 100 ML IVPB SCH (09:00)
[2024-04-28 10:40] LABS: #Basophils 0.03 10x3/uL (0.0-0.2); %Basophils 0.4 % (0.0-1.0); %Eosinophils 2.7 % (0.0-10.0); %Lymphocytes 10.1 % (21.0-51.0); %Monocytes 9.5 % (0.0-10.0); %Neutrophils 76.9 % (42.0-75.0); Hematocrit 24.6 % (36.0-47.0); Hemoglobin 7.9 g/dL (12.0-16.0); Mean Corpuscular HGB CONC 32.1 g/dL (32.0-36.0); Mean Corpuscular Hemoglobin 30.3 pg (27.0-31.0); Mean Corpuscular Volume 94.3 fL (78.0-98.0); Mean Platelet Volume 9.8 fL (7.4-10.4); Platelet Count 184 10x3/uL (130-400); RBC Distribution Width 15.1 % (11.5-14.5); Red Blood Cell (RBC) Count 2.61 mill/uL (4.20-5.40)
[2024-04-28 11:06] LABS: Anion Gap 12 mmol/L (10-20); BUN (Urea Nitrogen) 30 mg/dL (9.8-20.1); Calc. Creatinine Clearance 14 mL/min (70-130); Calcium 8.7 mg/dL (7.8-10.44); Carbon Dioxide 32 mmol/L (23-31); Chloride 95 mmol/L (98-107); Estimated GFR 8; Glucose 181 mg/dL (83-110); Potassium 3.8 mmol/L (3.5-5.1); Sodium 135 mmol/L (136-145)
[2024-04-28] MEDS: EPOETIN ALFA-EPBX (ESRD) 10,000 UNITS/ML VIAL SC SCH (14:22)
[2024-04-28 15:07] LABS: Hematocrit 24.9 % (36.0-47.0); Hemoglobin 8.1 g/dL (12.0-16.0)
[2024-04-28] MEDS: methylPREDNISolone Sod Succ 40 MG VIAL IVP SCH (17:36)
[2024-04-28] MEDS: Benzonatate 100 MG CAP PO PRN (17:43)
[2024-04-28] MEDS: Ipratropium/Albuterol 3 ML NEB NEB SCH (18:43)
[2024-04-28] MEDS: Atorvastatin Calcium 40 MG TAB PO SCH (21:23)
[2024-04-28] MEDS: Losartan 25 MG TAB PO SCH (21:23)
[2024-04-28] MEDS: Terazosin HCl 1 MG CAP PO SCH (21:23)
[2024-04-28 22:57] LABS: Hematocrit 27.2 % (36.0-47.0); Hemoglobin 8.8 g/dL (12.0-16.0)
[2024-04-29 04:59] LABS: #Basophils Less than 0.03 10x3/uL (0.0-0.2); #Eosinophils Less than 0.03 10x3/uL (0.0-0.7); %Basophils 0.1 % (0.0-1.0); %Lymphocytes 4.1 % (21.0-51.0); %Monocytes 1.8 % (0.0-10.0); %Neutrophils 93.3 % (42.0-75.0); Anion Gap 15 mmol/L (10-20); BUN (Urea Nitrogen) 46 mg/dL (9.8-20.1); Calc. Creatinine Clearance 10 mL/min (70-130); Calcium 8.7 mg/dL (7.8-10.44); Carbon Dioxide 27 mmol/L (23-31); Chloride 93 mmol/L (98-107); Estimated GFR 5; Glucose 329 mg/dL (83-110); Hematocrit 25.6 % (36.0-47.0); Hemoglobin 8.3 g/dL (12.0-16.0); Mean Corpuscular HGB CONC 32.4 g/dL (32.0-36.0); Mean Corpuscular Hemoglobin 30.4 pg (27.0-31.0); Mean Corpuscular Volume 93.8 fL (78.0-98.0); Mean Platelet Volume 10.2 fL (7.4-10.4); Platelet Count 202 10x3/uL (130-400); Potassium 4.3 mmol/L (3.5-5.1); RBC Distribution Width 15.1 % (11.5-14.5); Red Blood Cell (RBC) Count 2.73 mill/uL (4.20-5.40); Sodium 131 mmol/L (136-145)
[2024-04-29] MEDS: Amiodarone 200 MG TAB PO SCH (08:50)
[2024-04-29] MEDS: methylPREDNISolone Sod Succ 40 MG VIAL IVP SCH ×2 (08:52→21:03)
[2024-04-29] MEDS: Fluticasone Propionate Nasal Spray 16 gm Bottle NASAL SCH (08:52)
[2024-04-29] MEDS ORDERED: PROPOFOL 20 ML ONE (11:47)
[2024-04-29] MEDS: Furosemide 80 MG TAB PO SCH (18:15)
[2024-04-29] MEDS: hydrALAZINE 20 MG/ML VIAL SLOW IVP PRN (18:16)
[2024-04-29] MEDS: Apixaban 2.5 MG TAB PO SCH (21:03)
[2024-04-30 04:57] LABS: #Basophils Less than 0.03 10x3/uL (0.0-0.2); #Eosinophils Less than 0.03 10x3/uL (0.0-0.7); %Basophils 0.1 % (0.0-1.0); %Lymphocytes 3.4 % (21.0-51.0); %Monocytes 3.5 % (0.0-10.0); %Neutrophils 91.6 % (42.0-75.0); Hematocrit 26.2 % (36.0-47.0); Hemoglobin 8.7 g/dL (12.0-16.0); Mean Corpuscular HGB CONC 33.2 g/dL (32.0-36.0); Mean Corpuscular Hemoglobin 29.9 pg (27.0-31.0); Mean Platelet Volume 10.3 fL (7.4-10.4); Platelet Count 192 10x3/uL (130-400); RBC Distribution Width 15.2 % (11.5-14.5); Red Blood Cell (RBC) Count 2.91 mill/uL (4.20-5.40)
[2024-04-30 05:18] LABS: Anion Gap 17 mmol/L (10-20); BUN (Urea Nitrogen) 65 mg/dL (9.8-20.1); Calc. Creatinine Clearance 9 mL/min (70-130); Calcium 8.5 mg/dL (7.8-10.44); Carbon Dioxide 25 mmol/L (23-31); Chloride 90 mmol/L (98-107); Estimated GFR 4; Glucose 356 mg/dL (83-110); Potassium 5.1 mmol/L (3.5-5.1); Sodium 127 mmol/L (136-145)
[2024-04-30] MEDS ORDERED: Lidocaine 2% 6 ML (Jelly) SYR TOP PRN (08:33)
[2024-04-30 08:50] LABS: HBSAB Concentration 13.58 mIU/mL; HBsAg Index 0.28 S/CO (0-0.99); Hep B Core Total Ab NONREACTIVE (NonReactive); Hep B Core Total Index 0.05 S/CO (0-0.79); Hep B Surf AB REACTIVE (NonReactive); Hep B Surf Ag NONREACTIVE S/CO (NonReactive); Hep C IgG Ab NONREACTIVE S/CO (NonReactive); Hep C Index 0.04 S/CO (0-0.79)
[2024-04-30] MEDS ORDERED: Heparin 10,000 UNITS/ 10 ML VIAL ONE (08:55)
[2024-04-30] MEDS: Lidocaine-Prilocaine 2.5% Cream 5 GM TUBE TOP PRN (09:10)
[2024-04-30] MEDS: Furosemide 80 MG TAB PO SCH (09:10)
[2024-04-30] MEDS: methylPREDNISolone Sod Succ 40 MG VIAL IVP SCH (11:31)
[2024-04-30] MEDS: Pantoprazole DR 40 MG TAB PO SCH (11:32)
[2024-04-30 16:12] VITALS: BP 165/70; TEMP 98.1
== END 2024-04-30 17:25 | disposition home or self-care (01) | DRG 377 ==
LOC: 2NO 22:56 → OBSVTOIN 04-29 16:00
PROVIDERS: ADMIT Internal Medicine; ATTEND Family Medicine
PROC: 30233N1 Transfusion of Nonautologous Red Blood Cells into Peripheral Vein, Percutaneous Approach (ICD-10-PCS; 2024-04-28)
PROC: 0DJ08ZZ Inspection of Upper Intestinal Tract, Via Natural or Artificial Opening Endoscopic (ICD-10-PCS; principal; 2024-04-29)
DX: K29.71 Gastritis, unspecified, with bleeding (principal); N18.6 End stage renal disease; D62 Acute posthemorrhagic anemia; J44.1 Chronic obstructive pulmonary disease with (acute) exacerbation; E87.1 Hypo-osmolality and hyponatremia; I50.32 Chronic diastolic (congestive) heart failure; I13.2 Hypertensive heart and chronic kidney disease with heart failure and with stage 5 chronic kidney disease, or end stage renal disease; E11.22 Type 2 diabetes mellitus with diabetic chronic kidney disease; I48.0 Paroxysmal atrial fibrillation; I25.10 Atherosclerotic heart disease of native coronary artery without angina pectoris; D63.1 Anemia in chronic kidney disease; E11.65 Type 2 diabetes mellitus with hyperglycemia; K59.00 Constipation, unspecified; Z99.2 Dependence on renal dialysis; Z88.0 Allergy status to penicillin; Z88.2 Allergy status to sulfonamides; Z98.890 Other specified postprocedural states; Z79.899 Other long term (current) drug therapy; Z79.4 Long term (current) use of insulin; Z79.01 Long term (current) use of anticoagulants; E78.00 Pure hypercholesterolemia, unspecified; J44.89 Other specified chronic obstructive pulmonary disease; K21.9 Gastro-esophageal reflux disease without esophagitis; Z55.6 Problems related to health literacy
CPT/HCPCS: 36415; 36416; 36430; 71045; 80048; 80053; 82274; 82728; 83540; 83550; 84443; 84484; 85025; 85610; 85730; 86704; 86706; 86803; 86850; 86900; 86901; 87340; 93005; 94640; 94760; 96372; 96374; 96375; 96376; G0378; J0360; J1644; J1815; J2470; J2704; J2916; J2919; J7620; P9016; Q5105

== ENCOUNTER 2024-05-18 11:10 | Emergency (ER) | payer MEDICARE ==
[2024-05-18 12:27] LABS: ALT (SGPT) 7 U/L (8-55); AST (SGOT) 12 U/L (5-34); Albumin 3.1 g/dL (3.4-4.8); Alkaline Phosphatase 37 U/L (40-110); Anion Gap 11 mmol/L (10-20); BUN (Urea Nitrogen) 13 mg/dL (9.8-20.1); Bilirubin, Total 0.6 mg/dL (0.2-1.2); Calc. Creatinine Clearance 0 mL/min (70-130); Calcium 8.7 mg/dL (7.8-10.44); Carbon Dioxide 34 mmol/L (23-31); Chloride 96 mmol/L (98-107); Estimated GFR 14; Glucose 162 mg/dL (83-110); Potassium 3.2 mmol/L (3.5-5.1); Protein, Total 6.1 g/dL (5.8-8.1); Sodium 138 mmol/L (136-145)
[2024-05-18 12:35] LABS: Troponin I 0.026 ng/mL (< 0.028)
[2024-05-18 13:35] LABS: #Basophils 0.04 10x3/uL (0.0-0.2); %Basophils 1.1 % (0.0-1.0); %Eosinophils 4.8 % (0.0-10.0); %Lymphocytes 13.5 % (21.0-51.0); %Neutrophils 73.3 % (42.0-75.0); Hematocrit 24.5 % (36.0-47.0); Mean Corpuscular HGB CONC 32.7 g/dL (32.0-36.0); Mean Corpuscular Hemoglobin 29.3 pg (27.0-31.0); Mean Corpuscular Volume 89.7 fL (78.0-98.0); Mean Platelet Volume 9.8 fL (7.4-10.4); Platelet Count 140 10x3/uL (130-400); RBC Distribution Width 14.6 % (11.5-14.5); Red Blood Cell (RBC) Count 2.73 mill/uL (4.20-5.40)
[2024-05-18 16:34] LABS: Troponin I 0.025 ng/mL (< 0.028)
[2024-05-21 13:12] LABS: Chlamydia by PCR, Vaginal Swab *Indeterminate (NotDetected); GC by PCR, Vaginal Swab *Indeterminate (NotDetected)
== END 2024-05-18 17:04 | disposition home or self-care (01) ==
LOC: ERS 11:10
DX: R94.31 Abnormal electrocardiogram [ECG] [EKG] (principal); I13.2 Hypertensive heart and chronic kidney disease with heart failure and with stage 5 chronic kidney disease, or end stage renal disease; E11.22 Type 2 diabetes mellitus with diabetic chronic kidney disease; N18.6 End stage renal disease; I50.9 Heart failure, unspecified; I25.10 Atherosclerotic heart disease of native coronary artery without angina pectoris; J44.9 Chronic obstructive pulmonary disease, unspecified; K21.9 Gastro-esophageal reflux disease without esophagitis; Z99.2 Dependence on renal dialysis; Z79.4 Long term (current) use of insulin; Z95.5 Presence of coronary angioplasty implant and graft
CPT/HCPCS: 36415; 74176; 80053; 83880; 84484; 85025; 86850; 86900; 86901; 87480; 87491; 87510; 87591; 87660; 93005

== ENCOUNTER 2024-05-21 11:19 | Observation (INO) | payer MEDICARE ==
[~2024-05-21 11:19] MED LIST changes: -Heparin 10,000 UNITS/ 10 ML VIAL ONE; +Iopamidol-370 76% 500 ML MDV (1 ML CHARGE) ONE
[2024-05-21] MEDS ORDERED: Ondansetron PF 4 MG/2 ML Vial ONE (13:36)
[2024-05-21] MEDS ORDERED: Morphine 4 MG/ML VIAL ONE (13:36)
[2024-05-21] MEDS ORDERED: Nitroglycerin 2% Ointment 1 INCH/1 GM Packet ONE (13:36)
[2024-05-21] MEDS ORDERED: Pantoprazole 40 MG VIAL ONE (13:56)
[2024-05-21 14:16] LABS: #Basophils Less than 0.03 10x3/uL (0.0-0.2); %Basophils 0.5 % (0.0-1.0); %Eosinophils 3.7 % (0.0-10.0); %Lymphocytes 11.5 % (21.0-51.0); %Monocytes 7.2 % (0.0-10.0); %Neutrophils 76.8 % (42.0-75.0); Hematocrit 22.8 % (36.0-47.0); Hemoglobin 7.6 g/dL (12.0-16.0); Mean Corpuscular HGB CONC 33.3 g/dL (32.0-36.0); Mean Corpuscular Hemoglobin 29.2 pg (27.0-31.0); Mean Corpuscular Volume 87.7 fL (78.0-98.0); Mean Platelet Volume 10.2 fL (7.4-10.4); Platelet Count 179 10x3/uL (130-400); RBC Distribution Width 14.7 % (11.5-14.5)
[2024-05-21 14:19] LABS: Prothrombin Time 13.4 sec (12.0-14.7)
[2024-05-21 14:30] LABS: Troponin I 0.027 ng/mL (< 0.028)
[2024-05-21 14:44] LABS: ALT (SGPT) 6 U/L (8-55); AST (SGOT) 12 U/L (5-34); Albumin 3.1 g/dL (3.4-4.8); Alkaline Phosphatase 40 U/L (40-110); Anion Gap 14 mmol/L (10-20); BUN (Urea Nitrogen) 17 mg/dL (9.8-20.1); Bilirubin, Total 0.6 mg/dL (0.2-1.2); Calc. Creatinine Clearance 0 mL/min (70-130); Calcium 8.5 mg/dL (7.8-10.44); Carbon Dioxide 32 mmol/L (23-31); Chloride 96 mmol/L (98-107); Estimated GFR 10; Globulin 3.1 g/dL (2.4-3.5); Glucose 158 mg/dL (83-110); Potassium 3.6 mmol/L (3.5-5.1); Protein, Total 6.2 g/dL (5.8-8.1); Sodium 138 mmol/L (136-145)
[2024-05-21 16:17] LABS: Bacteria/HPF None Seen HPF (None Seen); Bilirubin 1+ (Negative); Blood, Urine Negative (Negative); CAUTI Indications for Culture Alt mental st,lethar; Clarity Turbid (Clear); Glucose, Urine (Dipstick) Normal (Negative); Ketone, Urine Negative (Negative); Leukocyte 75 Leu/uL (Negative); Nitrite Negative (Negative); Protein, Urine (Dipstick) 70 mg/dL (Neg-Trace); RBC/HPF 0-3 HPF (0-3); Specific Gravity, Urine 1.021 (1.002-1.036); Squamous Epithelial 0-3 HPF (0-3); WBC/HPF 0-3 HPF (0-3); pH, Urine 5.5 (5.0-9.0)
[2024-05-21 16:20] LABS: Urine Culture Reflex No No
[2024-05-21] MEDS ORDERED: Ipratropium/Albuterol 3 ML NEB ONE ×2 (17:23→18:50)
[2024-05-21] MEDS ORDERED: predniSONE 20 MG TAB ONE (17:23)
[2024-05-21] MEDS ORDERED: Magnesium 2 GM/50 ML BAG (IN WATER) ONE (17:24)
[2024-05-21] MEDS ORDERED: Ipratropium/Albuterol 3 ML NEB NEB PRN (17:35)
[2024-05-21] MEDS ORDERED: EPOETIN ALFA-EPBX (ESRD) 10,000 UNITS/ML VIAL SC SCH (18:00)
[2024-05-21] MEDS: Ipratropium/Albuterol 3 ML NEB NEB SCH (18:09)
[2024-05-21] MEDS: Magnesium 2 GM/50 ML(in water) 2 GM in Premix 1 BAG IVPB SCH (18:48)
[2024-05-21] MEDS: predniSONE 20 MG TAB PO SCH (18:49)
[2024-05-21 20:24] LABS: Iron 31 ug/dL (50-170); Iron Binding Capacity, Total 179 mcg/dL (265-497)
[2024-05-21 20:28] LABS: Troponin I 0.021 ng/mL (< 0.028)
[2024-05-21 20:46] LABS: Ferritin 985.97 ng/mL (10-291); Free T4 (Free Thyroxine) 1.02 ng/dL (0.70-1.48); Thyroid Stimulating Hormone 4.573 uIU/mL (0.35-4.94)
[2024-05-21 21:02] VITALS: BMI 35.2
[2024-05-21] MEDS: hydrALAZINE 25 MG TAB PO SCH (22:15)
[2024-05-21] MEDS: traMADol HCl 50 MG TAB PO PRN (22:15)
[2024-05-21] MEDS: Losartan 25 MG TAB PO SCH (22:15)
[2024-05-21] MEDS: Nitroglycerin 0.4 MG TAB (25 Tab Bottle) SL PRN (22:16)
[2024-05-21] MEDS: Doxycycline 100 MG CAP PO SCH (22:16)
[2024-05-22 01:52] LABS: Troponin I 0.022 ng/mL (< 0.028)
[2024-05-22 04:46] LABS: #Basophils Less than 0.03 10x3/uL (0.0-0.2); #Eosinophils Less than 0.03 10x3/uL (0.0-0.7); %Basophils 0.2 % (0.0-1.0); %Lymphocytes 4.6 % (21.0-51.0); %Monocytes 1.3 % (0.0-10.0); %Neutrophils 93.5 % (42.0-75.0); Hemoglobin 7.6 g/dL (12.0-16.0); Mean Corpuscular HGB CONC 31.7 g/dL (32.0-36.0); Mean Corpuscular Volume 91.6 fL (78.0-98.0); Mean Platelet Volume 10.2 fL (7.4-10.4); Platelet Count 194 10x3/uL (130-400); RBC Distribution Width 14.7 % (11.5-14.5); Red Blood Cell (RBC) Count 2.62 mill/uL (4.20-5.40)
[2024-05-22 05:02] LABS: Anion Gap 16 mmol/L (10-20); BUN (Urea Nitrogen) 26 mg/dL (9.8-20.1); Calc. Creatinine Clearance 13 mL/min (70-130); Calcium 8.3 mg/dL (7.8-10.44); Carbon Dioxide 29 mmol/L (23-31); Chloride 93 mmol/L (98-107); Estimated GFR 7; Glucose 405 mg/dL (83-110); Potassium 4.7 mmol/L (3.5-5.1); Sodium 133 mmol/L (136-145)
[2024-05-22] MEDS: predniSONE 20 MG TAB PO SCH (12:08)
[2024-05-22] MEDS: Pantoprazole DR 40 MG TAB PO SCH (12:08)
[2024-05-22] MEDS: Montelukast Sodium 10 mg Tablet PO SCH (12:09)
[2024-05-22] MEDS: Amiodarone 200 MG TAB PO SCH (12:09)
[2024-05-22] MEDS: Loratadine 10 MG TAB PO SCH (12:10)
[2024-05-22] MEDS: Insulin Lispro 100 UNIT/ML 10 ML VIAL SC PRN ×2 (12:17→21:15)
[2024-05-22 15:25] LABS: #Basophils Less than 0.03 10x3/uL (0.0-0.2); #Eosinophils Less than 0.03 10x3/uL (0.0-0.7); %Basophils 0.3 % (0.0-1.0); %Eosinophils 0.2 % (0.0-10.0); %Lymphocytes 5.3 % (21.0-51.0); %Monocytes 6.9 % (0.0-10.0); %Neutrophils 86.7 % (42.0-75.0); Hematocrit 27.1 % (36.0-47.0); Hemoglobin 8.9 g/dL (12.0-16.0); Mean Corpuscular HGB CONC 32.8 g/dL (32.0-36.0); Mean Corpuscular Hemoglobin 28.5 pg (27.0-31.0); Mean Corpuscular Volume 86.9 fL (78.0-98.0); Mean Platelet Volume 10.3 fL (7.4-10.4); Platelet Count 219 10x3/uL (130-400); RBC Distribution Width 17.9 % (11.5-14.5); Red Blood Cell (RBC) Count 3.12 mill/uL (4.20-5.40)
[2024-05-23 05:23] LABS: #Basophils Less than 0.03 10x3/uL (0.0-0.2); #Eosinophils Less than 0.03 10x3/uL (0.0-0.7); %Basophils 0.1 % (0.0-1.0); %Lymphocytes 5.2 % (21.0-51.0); %Monocytes 4.1 % (0.0-10.0); %Neutrophils 89.4 % (42.0-75.0); Hematocrit 26.5 % (36.0-47.0); Hemoglobin 8.7 g/dL (12.0-16.0); Mean Corpuscular HGB CONC 32.8 g/dL (32.0-36.0); Mean Corpuscular Hemoglobin 28.5 pg (27.0-31.0); Mean Corpuscular Volume 86.9 fL (78.0-98.0); Mean Platelet Volume 10.4 fL (7.4-10.4); Platelet Count 223 10x3/uL (130-400); RBC Distribution Width 17.8 % (11.5-14.5); Red Blood Cell (RBC) Count 3.05 mill/uL (4.20-5.40)
[2024-05-23 05:24] LABS: Anion Gap 17 mmol/L (10-20); BUN (Urea Nitrogen) 36 mg/dL (9.8-20.1); Calc. Creatinine Clearance 12 mL/min (70-130); Calcium 8.3 mg/dL (7.8-10.44); Carbon Dioxide 30 mmol/L (23-31); Chloride 90 mmol/L (98-107); Estimated GFR 7; Glucose 392 mg/dL (83-110); Potassium 4.6 mmol/L (3.5-5.1); Sodium 132 mmol/L (136-145)
[2024-05-23] MEDS: Ipratropium/Albuterol 3 ML NEB NEB PRN (12:35)
[2024-05-23] MEDS ORDERED: Regadenoson 0.4 MG/5 ML SYRINGE ONE (14:58)
[2024-05-23] MEDS: Acetaminophen 325 MG TAB PO PRN (17:11)
[2024-05-23 17:30] VITALS: BP 167/59; TEMP 98
[2024-05-23] MEDS: Insulin Lispro 100 UNIT/ML 10 ML VIAL SC SCH (17:44)
[2024-05-24] MEDS ORDERED: FLU (Fluad Triv) TS24-25 (65UP)/MF59C/PF 45 MCG/0.5 ML Syringe IM ONE (09:00)
== END 2024-05-23 18:09 | disposition home or self-care (01) ==
LOC: ERS 11:19 → ERHOLD 16:01 → OBS 20:59
PROVIDERS: ADMIT Hospitalist; ATTEND Family Medicine
DX: R07.89 Other chest pain (principal); I13.2 Hypertensive heart and chronic kidney disease with heart failure and with stage 5 chronic kidney disease, or end stage renal disease; I50.9 Heart failure, unspecified; N18.6 End stage renal disease; D63.1 Anemia in chronic kidney disease; R53.1 Weakness; E11.22 Type 2 diabetes mellitus with diabetic chronic kidney disease; J45.901 Unspecified asthma with (acute) exacerbation; I25.10 Atherosclerotic heart disease of native coronary artery without angina pectoris; I73.9 Peripheral vascular disease, unspecified; K21.9 Gastro-esophageal reflux disease without esophagitis; Z99.2 Dependence on renal dialysis; Z85.3 Personal history of malignant neoplasm of breast; Z95.5 Presence of coronary angioplasty implant and graft; Z88.0 Allergy status to penicillin; Z88.2 Allergy status to sulfonamides; Z90.710 Acquired absence of both cervix and uterus; Z88.1 Allergy status to other antibiotic agents; Z88.8 Allergy status to other drugs, medicaments and biological substances
CPT/HCPCS: 36430; 51701; 71045; 74177; 78452; 80048 ×2; 81001; 82533; 82728; 82962 ×2; 83540; 83550; 83880; 84439; 84484 ×3; 85025 ×3; 85610; 86850; 86900; 86901; 86920; 93005; 93017; 94640 ×3; 96374; 96375; 97530; 99285; A9500; G0378 ×4; J1815; J2272; J2405; J2470; J2785 ×2; J3475; P9016; Q9967; 36415; 36416; 80053; 82274; 84443; J7512; J7620

== ENCOUNTER 2025-05-28 11:05 | Inpatient (IN) | payer MEDICARE ==
[2025-05-28] MEDS ORDERED: Iopamidol 370 76% 100 ML VIAL ONE (11:21)
[2025-05-28 11:24] LABS: #Basophils 0.03 10x3/uL (0.0-0.2); #Eosinophils 0.19 10x3/uL (0.0-0.7); #Monocytes 0.33 10x3/uL (0.11-0.59); #Neutrophils 4.07 10x3/uL (1.40-6.50); %Basophils 0.6 % (0.0-1.0); %Eosinophils 3.7 % (0.0-10.0); %Lymphocytes 10.6 % (21.0-51.0); %Monocytes 6.4 % (0.0-10.0); %Neutrophils 78.3 % (42.0-75.0); Hematocrit 32.1 % (36.0-47.0); Hemoglobin 9.9 g/dL (12.0-16.0); Mean Corpuscular Hemoglobin 25.1 pg (27.0-31.0); Mean Corpuscular Volume 81.3 fL (78.0-98.0); Platelet Count 180 10x3/uL (130-400); Red Blood Cell (RBC) Count 3.95 mill/uL (4.20-5.40); White Blood Cell (WBC) Count 5.19 10x3/uL (4.8-10.8)
[2025-05-28 12:00] LABS: ALT (SGPT) 8 U/L (Less than 34); AST (SGOT) 23 U/L (11-34); Albumin 3.1 g/dL (3.1-4.5); Alkaline Phosphatase 62 U/L (40-110); Anion Gap 16 mmol/L (10-20); BUN (Urea Nitrogen) 16 mg/dL (9.8-20.1); Bilirubin, Total 0.5 mg/dL (0.3-1.2); Calc. Creatinine Clearance 0 mL/min (70-130); Calcium 8.6 mg/dL (7.8-10.44); Carbon Dioxide 30 mmol/L (23-31); Chloride 96 mmol/L (98-107); Globulin 3.4 g/dL (2.4-3.5); Glucose 139 mg/dL (83-110); Lipase 18 U/L (8-78); Potassium 3.6 mmol/L (3.5-5.1); Sodium 138 mmol/L (136-145)
[2025-05-28] MEDS ORDERED: Calcium Carbonate 500 MG ChewTAB PO PRN (18:01)
[2025-05-28] MEDS ORDERED: Guaifenesin DM 100-10/5 ML UDCUP PO PRN (18:01)
[2025-05-28] MEDS ORDERED: Glucagon 1 MG/ML KIT IM PRN (18:48)
[2025-05-28] MEDS ORDERED: Dextrose 50% Abboject 50 ML SYRINGE SLOW IVP PRN (18:48)
[2025-05-28 21:28] VITALS: BMI 34.6
[2025-05-28] MEDS: Insulin Glargine 30 UNITS/0.3 ML VIAL SC SCH (22:26)
[2025-05-28] MEDS: Heparin 5,000 UNITS/ML VIAL SC SCH (22:29)
[2025-05-29 04:01] LABS: #Basophils 0.03 10x3/uL (0.0-0.2); #Eosinophils 0.32 10x3/uL (0.0-0.7); #Monocytes 0.44 10x3/uL (0.11-0.59); #Neutrophils 2.67 10x3/uL (1.40-6.50); %Basophils 0.8 % (0.0-1.0); %Eosinophils 8.0 % (0.0-10.0); %Lymphocytes 13.0 % (21.0-51.0); %Monocytes 11.0 % (0.0-10.0); %Neutrophils 66.7 % (42.0-75.0); Hematocrit 31.1 % (36.0-47.0); Hemoglobin 9.2 g/dL (12.0-16.0); Mean Corpuscular Hemoglobin 24.5 pg (27.0-31.0); Mean Corpuscular Volume 82.9 fL (78.0-98.0); Platelet Count 186 10x3/uL (130-400); Red Blood Cell (RBC) Count 3.75 mill/uL (4.20-5.40); White Blood Cell (WBC) Count 4.00 10x3/uL (4.8-10.8)
[2025-05-29 04:20] LABS: Anion Gap 14 mmol/L (10-20); BUN (Urea Nitrogen) 20 mg/dL (9.8-20.1); Calc. Creatinine Clearance 10 mL/min (70-130); Calcium 8.4 mg/dL (7.8-10.44); Carbon Dioxide 30 mmol/L (23-31); Cardiac Risk 2.5 (Less than 4.5); Chloride 96 mmol/L (98-107); Cholesterol 78 mg/dl (< 200 Desired); Glucose 106 mg/dL (83-110); HDL Cholesterol 31 mg/dL (>60 Neg Risk); LDL Cholesterol, Calculated 35 mg/dL; Potassium 4.3 mmol/L (3.5-5.1); Sodium 136 mmol/L (136-145); Triglycerides 60 mg/dL (Less than 150)
[2025-05-29] MEDS ORDERED: Non-Formulary Item 1 EACH (Fluticasone/Umeclidin/Vilanter [Trelegy Ellipta 100-62.5-25] 1 INH SCH (09:00)
[2025-05-29] MEDS: Aspirin 81 mg Enteric Coated Tablet PO SCH (09:26)
[2025-05-29] MEDS: Cholecalciferol 1,000 UNITS (25 MCG) TAB PO SCH (09:27)
[2025-05-29] MEDS: Ezetimibe 10 MG TAB PO SCH (09:27)
[2025-05-29] MEDS: Pantoprazole 40 MG DR.TAB PO SCH (09:31)
[2025-05-29] MEDS: Mometasone 100 MCG HFA INHALER (RT USE) INH SCH (10:35)
[2025-05-29] MEDS: Lidocaine-Prilocaine 2.5% Cream 5 GM TUBE TOP SCH (12:15)
[2025-05-29 13:52] VITALS: BMI 34.6
[2025-05-29] MEDS: EPOETIN ALFA-EPBX (ESRD) 10,000 UNITS/ML VIAL IVP SCH (16:28)
[2025-05-29] MEDS: NIFEdipine XL 60 MG ER.TAB PO SCH (18:03)
[2025-05-29] MEDS: Losartan 25 MG TAB PO SCH (18:03)
[2025-05-29] MEDS: Amiodarone 200 MG TAB PO SCH (22:26)
[2025-05-29] MEDS: Apixaban 2.5 MG TAB PO SCH (22:26)
[2025-05-30] MEDS: NIFEdipine XL 30 MG ER.TAB PO SCH (08:49)
[2025-05-30] MEDS ORDERED: Iopamidol-370 76% 500 ML MDV (1 ML CHARGE) ONE (14:33)
[2025-05-30] MEDS: Ondansetron PF 4 MG/2 ML Vial IVP SCH (20:47)
[2025-05-30] MEDS: Senokot S 8.6-50 MG TAB PO SCH (21:14)
[2025-05-30 21:21] LABS: #Basophils Less than 0.03 10x3/uL (0.0-0.2); #Eosinophils 0.04 10x3/uL (0.0-0.7); #Monocytes 0.03 10x3/uL (0.11-0.59); #Neutrophils 3.80 10x3/uL (1.40-6.50); %Basophils 0.2 % (0.0-1.0); %Eosinophils 1.0 % (0.0-10.0); %Lymphocytes 3.7 % (21.0-51.0); %Monocytes 0.7 % (0.0-10.0); %Neutrophils 94.2 % (42.0-75.0); Hematocrit 34.1 % (36.0-47.0); Hemoglobin 10.5 g/dL (12.0-16.0); Mean Corpuscular Hemoglobin 25.0 pg (27.0-31.0); Mean Corpuscular Volume 81.2 fL (78.0-98.0); Platelet Count 174 10x3/uL (130-400); Red Blood Cell (RBC) Count 4.20 mill/uL (4.20-5.40); White Blood Cell (WBC) Count 4.04 10x3/uL (4.8-10.8)
[2025-05-30 21:54] LABS: ALT (SGPT) Less than 7 U/L (Less than 34); AST (SGOT) 18 U/L (11-34); Albumin 3.1 g/dL (3.1-4.5); Alkaline Phosphatase 62 U/L (40-110); Anion Gap 20 mmol/L (10-20); BUN (Urea Nitrogen) 21 mg/dL (9.8-20.1); Bilirubin, Total 0.4 mg/dL (0.3-1.2); Calc. Creatinine Clearance 10 mL/min (70-130); Calcium 8.5 mg/dL (7.8-10.44); Carbon Dioxide 24 mmol/L (23-31); Chloride 95 mmol/L (98-107); Globulin 3.3 g/dL (2.4-3.5); Glucose 156 mg/dL (83-110); Lipase 21 U/L (8-78); Potassium 3.9 mmol/L (3.5-5.1); Sodium 135 mmol/L (136-145)
[2025-05-30] MEDS: Acetaminophen 500 MG TAB PO SCH (23:05)
[2025-05-31] MEDS ORDERED: Vancomycin Dialysis Sliding Scale (Wt > 99) FS SCH (01:00)
[2025-05-31] MEDS: VANCOMYCIN 2 GRAM/400 ML Premix BAG IVPB SCH (01:51)
[2025-05-31 01:56] LABS: Influenza A by NAA Not Detected (NotDetected); Influenza B by NAA Not Detected (NotDetected); SARS-CoV-2 NAA Rapid Test Not Detected (NotDetected)
[2025-05-31 03:48] LABS: #Basophils 0.03 10x3/uL (0.0-0.2); #Eosinophils Less than 0.03 10x3/uL (0.0-0.7); #Monocytes 0.66 10x3/uL (0.11-0.59); #Neutrophils 11.18 10x3/uL (1.40-6.50); %Basophils 0.2 % (0.0-1.0); %Eosinophils 0.1 % (0.0-10.0); %Lymphocytes 2.0 % (21.0-51.0); %Monocytes 5.4 % (0.0-10.0); %Neutrophils 91.1 % (42.0-75.0); Hematocrit 29.2 % (36.0-47.0); Hemoglobin 8.8 g/dL (12.0-16.0); Mean Corpuscular Hemoglobin 24.6 pg (27.0-31.0); Mean Corpuscular Volume 81.8 fL (78.0-98.0); Platelet Count 163 10x3/uL (130-400); Red Blood Cell (RBC) Count 3.57 mill/uL (4.20-5.40); White Blood Cell (WBC) Count 12.28 10x3/uL (4.8-10.8)
[2025-05-31 04:04] LABS: Anion Gap 13 mmol/L (10-20); BUN (Urea Nitrogen) 25 mg/dL (9.8-20.1); Calc. Creatinine Clearance 10 mL/min (70-130); Calcium 7.8 mg/dL (7.8-10.44); Carbon Dioxide 28 mmol/L (23-31); Chloride 96 mmol/L (98-107); Glucose 196 mg/dL (83-110); Potassium 3.4 mmol/L (3.5-5.1); Sodium 134 mmol/L (136-145)
[2025-05-31 17:16] LABS: Potassium 4.6 mmol/L (3.5-5.1)
[2025-05-31 17:20] LABS: Vancomycin, Random 20.3 ug/mL (See Comment)
[2025-05-31] MEDS: Acetaminophen 325 MG TAB PO PRN (22:18)
[2025-06-01 04:59] LABS: #Basophils 0.04 10x3/uL (0.0-0.2); #Eosinophils 0.20 10x3/uL (0.0-0.7); #Monocytes 0.76 10x3/uL (0.11-0.59); #Neutrophils 7.63 10x3/uL (1.40-6.50); %Basophils 0.4 % (0.0-1.0); %Eosinophils 2.2 % (0.0-10.0); %Lymphocytes 5.7 % (21.0-51.0); %Monocytes 8.3 % (0.0-10.0); %Neutrophils 83.1 % (42.0-75.0); Hematocrit 29.2 % (36.0-47.0); Hemoglobin 8.8 g/dL (12.0-16.0); Mean Corpuscular Hemoglobin 24.5 pg (27.0-31.0); Mean Corpuscular Volume 81.3 fL (78.0-98.0); Platelet Count 164 10x3/uL (130-400); Red Blood Cell (RBC) Count 3.59 mill/uL (4.20-5.40); White Blood Cell (WBC) Count 9.18 10x3/uL (4.8-10.8)
[2025-06-01 05:19] LABS: Anion Gap 14 mmol/L (10-20); BUN (Urea Nitrogen) 23 mg/dL (9.8-20.1); Calc. Creatinine Clearance 13 mL/min (70-130); Calcium 8.1 mg/dL (7.8-10.44); Carbon Dioxide 28 mmol/L (23-31); Chloride 97 mmol/L (98-107); Glucose 165 mg/dL (83-110); Potassium 4.1 mmol/L (3.5-5.1); Sodium 135 mmol/L (136-145)
[2025-06-02 05:00] LABS: #Basophils 0.03 10x3/uL (0.0-0.2); #Eosinophils 0.36 10x3/uL (0.0-0.7); #Monocytes 0.59 10x3/uL (0.11-0.59); #Neutrophils 5.63 10x3/uL (1.40-6.50); %Basophils 0.4 % (0.0-1.0); %Eosinophils 5.0 % (0.0-10.0); %Lymphocytes 8.0 % (21.0-51.0); %Monocytes 8.2 % (0.0-10.0); %Neutrophils 78.0 % (42.0-75.0); Hematocrit 29.8 % (36.0-47.0); Hemoglobin 9.0 g/dL (12.0-16.0); Mean Corpuscular Hemoglobin 24.1 pg (27.0-31.0); Mean Corpuscular Volume 79.9 fL (78.0-98.0); Platelet Count 179 10x3/uL (130-400); Red Blood Cell (RBC) Count 3.73 mill/uL (4.20-5.40); White Blood Cell (WBC) Count 7.22 10x3/uL (4.8-10.8)
[2025-06-02 05:16] LABS: Anion Gap 17 mmol/L (10-20); BUN (Urea Nitrogen) 34 mg/dL (9.8-20.1); Calc. Creatinine Clearance 10 mL/min (70-130); Calcium 8.3 mg/dL (7.8-10.44); Carbon Dioxide 25 mmol/L (23-31); Chloride 96 mmol/L (98-107); Glucose 121 mg/dL (83-110); Potassium 4.5 mmol/L (3.5-5.1); Sodium 133 mmol/L (136-145)
[2025-06-02 05:19] LABS: Magnesium 1.7 mg/dL (1.6-2.6)
[2025-06-02 08:12] LABS: Vancomycin, Trough 16.6 ug/mL
[2025-06-03 03:55] LABS: #Basophils 0.03 10x3/uL (0.0-0.2); #Eosinophils 0.44 10x3/uL (0.0-0.7); #Monocytes 0.60 10x3/uL (0.11-0.59); #Neutrophils 4.47 10x3/uL (1.40-6.50); %Basophils 0.5 % (0.0-1.0); %Eosinophils 7.1 % (0.0-10.0); %Lymphocytes 9.6 % (21.0-51.0); %Monocytes 9.7 % (0.0-10.0); %Neutrophils 72.6 % (42.0-75.0); Hematocrit 30.7 % (36.0-47.0); Hemoglobin 9.6 g/dL (12.0-16.0); Mean Corpuscular Hemoglobin 24.4 pg (27.0-31.0); Mean Corpuscular Volume 78.1 fL (78.0-98.0); Platelet Count 201 10x3/uL (130-400); Red Blood Cell (RBC) Count 3.93 mill/uL (4.20-5.40); White Blood Cell (WBC) Count 6.16 10x3/uL (4.8-10.8)
[2025-06-03 04:10] LABS: ALT (SGPT) 10 U/L (Less than 34); AST (SGOT) 21 U/L (11-34); Albumin 2.6 g/dL (3.1-4.5); Alkaline Phosphatase 49 U/L (40-110); Anion Gap 14 mmol/L (10-20); BUN (Urea Nitrogen) 21 mg/dL (9.8-20.1); Bilirubin, Total 0.3 mg/dL (0.3-1.2); Calc. Creatinine Clearance 13 mL/min (70-130); Calcium 8.5 mg/dL (7.8-10.44); Carbon Dioxide 29 mmol/L (23-31); Chloride 97 mmol/L (98-107); Globulin 3.3 g/dL (2.4-3.5); Glucose 68 mg/dL (83-110); Magnesium 1.7 mg/dL (1.6-2.6); Potassium 4.5 mmol/L (3.5-5.1); Sodium 135 mmol/L (136-145)
[2025-06-04 04:26] LABS: #Basophils 0.04 10x3/uL (0.0-0.2); #Eosinophils 0.33 10x3/uL (0.0-0.7); #Monocytes 0.62 10x3/uL (0.11-0.59); #Neutrophils 3.25 10x3/uL (1.40-6.50); %Basophils 0.8 % (0.0-1.0); %Eosinophils 6.7 % (0.0-10.0); %Lymphocytes 13.9 % (21.0-51.0); %Monocytes 12.5 % (0.0-10.0); %Neutrophils 65.5 % (42.0-75.0); Hematocrit 31.2 % (36.0-47.0); Hemoglobin 9.5 g/dL (12.0-16.0); Mean Corpuscular Hemoglobin 24.2 pg (27.0-31.0); Mean Corpuscular Volume 79.6 fL (78.0-98.0); Platelet Count 225 10x3/uL (130-400); Red Blood Cell (RBC) Count 3.92 mill/uL (4.20-5.40); White Blood Cell (WBC) Count 4.96 10x3/uL (4.8-10.8)
[2025-06-04 04:44] LABS: ALT (SGPT) 10 U/L (Less than 34); AST (SGOT) 32 U/L (11-34); Albumin 2.6 g/dL (3.1-4.5); Alkaline Phosphatase 49 U/L (40-110); Anion Gap 16 mmol/L (10-20); BUN (Urea Nitrogen) 26 mg/dL (9.8-20.1); Bilirubin, Total 0.3 mg/dL (0.3-1.2); Calc. Creatinine Clearance 10 mL/min (70-130); Calcium 8.7 mg/dL (7.8-10.44); Carbon Dioxide 25 mmol/L (23-31); Chloride 98 mmol/L (98-107); Globulin 3.2 g/dL (2.4-3.5); Glucose 106 mg/dL (83-110); Magnesium 1.8 mg/dL (1.6-2.6); Potassium 4.5 mmol/L (3.5-5.1); Sodium 134 mmol/L (136-145)
[2025-06-05 04:35] LABS: #Basophils 0.06 10x3/uL (0.0-0.2); #Eosinophils 0.27 10x3/uL (0.0-0.7); #Monocytes 0.77 10x3/uL (0.11-0.59); #Neutrophils 3.60 10x3/uL (1.40-6.50); %Basophils 1.1 % (0.0-1.0); %Eosinophils 4.9 % (0.0-10.0); %Lymphocytes 13.2 % (21.0-51.0); %Monocytes 13.9 % (0.0-10.0); %Neutrophils 65.1 % (42.0-75.0); Hematocrit 30.4 % (36.0-47.0); Hemoglobin 9.4 g/dL (12.0-16.0); Mean Corpuscular Hemoglobin 24.4 pg (27.0-31.0); Mean Corpuscular Volume 79.0 fL (78.0-98.0); Platelet Count 212 10x3/uL (130-400); Red Blood Cell (RBC) Count 3.85 mill/uL (4.20-5.40); White Blood Cell (WBC) Count 5.53 10x3/uL (4.8-10.8)
[2025-06-05 04:57] LABS: ALT (SGPT) 8 U/L (Less than 34); AST (SGOT) 24 U/L (11-34); Albumin 2.5 g/dL (3.1-4.5); Alkaline Phosphatase 48 U/L (40-110); Anion Gap 14 mmol/L (10-20); BUN (Urea Nitrogen) 20 mg/dL (9.8-20.1); Bilirubin, Total 0.3 mg/dL (0.3-1.2); Calc. Creatinine Clearance 13 mL/min (70-130); Calcium 8.4 mg/dL (7.8-10.44); Carbon Dioxide 27 mmol/L (23-31); Chloride 97 mmol/L (98-107); Globulin 3.1 g/dL (2.4-3.5); Glucose 149 mg/dL (83-110); Magnesium 1.8 mg/dL (1.6-2.6); Potassium 4.2 mmol/L (3.5-5.1); Sodium 134 mmol/L (136-145)
[2025-06-05 11:49] VITALS: BP 145/54; TEMP 98.8
== END 2025-06-05 14:15 | disposition swing bed (61) | DRG 64 ==
LOC: ERS 11:05 → 2SE 17:24 → OBSVTOIN 05-29 10:34
PROVIDERS: ADMIT Internal Medicine; ATTEND Internal Medicine
PROC: 5A1D70Z Performance of Urinary Filtration, Intermittent, Less than 6 Hours Per Day (ICD-10-PCS; 2025-05-29)
PROC: 3E03329 Introduction of Other Anti-infective into Peripheral Vein, Percutaneous Approach (ICD-10-PCS; principal; 2025-05-31)
DX: I63.541 Cerebral infarction due to unspecified occlusion or stenosis of right cerebellar artery (principal); N18.6 End stage renal disease; J96.11 Chronic respiratory failure with hypoxia; I50.32 Chronic diastolic (congestive) heart failure; I13.0 Hypertensive heart and chronic kidney disease with heart failure and stage 1 through stage 4 chronic kidney disease, or unspecified chronic kidney disease; R78.81 Bacteremia; E87.20 Acidosis, unspecified; R29.700 NIHSS score 0; R00.1 Bradycardia, unspecified; E66.9 Obesity, unspecified; E11.22 Type 2 diabetes mellitus with diabetic chronic kidney disease; I25.10 Atherosclerotic heart disease of native coronary artery without angina pectoris; K21.9 Gastro-esophageal reflux disease without esophagitis; J44.9 Chronic obstructive pulmonary disease, unspecified; M10.9 Gout, unspecified; E11.51 Type 2 diabetes mellitus with diabetic peripheral angiopathy without gangrene; I48.0 Paroxysmal atrial fibrillation; R13.10 Dysphagia, unspecified; D63.1 Anemia in chronic kidney disease; E11.649 Type 2 diabetes mellitus with hypoglycemia without coma; I65.01 Occlusion and stenosis of right vertebral artery; B96.4 Proteus (mirabilis) (morganii) as the cause of diseases classified elsewhere; Z68.30 Body mass index [BMI] 30.0-30.9, adult; Z99.2 Dependence on renal dialysis; Z90.710 Acquired absence of both cervix and uterus; Z95.5 Presence of coronary angioplasty implant and graft; Z98.890 Other specified postprocedural states; Z85.3 Personal history of malignant neoplasm of breast; Z87.891 Personal history of nicotine dependence; Z79.899 Other long term (current) drug therapy; Z79.02 Long term (current) use of antithrombotics/antiplatelets; Z79.890 Hormone replacement therapy; Z95.818 Presence of other cardiac implants and grafts; Z79.82 Long term (current) use of aspirin; Z88.0 Allergy status to penicillin; Z88.2 Allergy status to sulfonamides
CPT/HCPCS: 36415; 36416; 70496; 70498; 70551; 74018; 74177; 74230; 80048; 80053; 80061; 80202; 83036; 83605; 83690; 83735; 83880; 84484; 85025; 87040; 87077; 87149; 87186; 87636; 90935; 93005; 93010; 94640; 94664; 96372; 96374; G0257; G0378; J0692; J1644; J1815; J2270; J2272; J2405; J3375; J7030; Q5105; Q9967

== ENCOUNTER 2025-06-15 13:29 | Inpatient (IN) | payer MEDICARE ==
[2025-06-15] MEDS ORDERED: Ondansetron PF 4 MG/2 ML Vial IVP PRN (15:05)
[2025-06-15] MEDS ORDERED: Dextrose 50% Abboject 50 ML SYRINGE SLOW IVP PRN (15:05)
[2025-06-15] MEDS ORDERED: Melatonin 3 MG TAB PO PRN (15:05)
[2025-06-15] MEDS ORDERED: Glucagon 1 MG/ML KIT IM PRN (15:05)
[2025-06-15 16:05] VITALS: BMI 34.0
[2025-06-15 17:07] LABS: #Basophils Less than 0.03 10x3/uL (0.0-0.2); #Eosinophils 0.17 10x3/uL (0.0-0.7); #Monocytes 0.51 10x3/uL (0.11-0.59); #Neutrophils 2.60 10x3/uL (1.40-6.50); %Basophils 0.3 % (0.0-1.0); %Eosinophils 4.4 % (0.0-10.0); %Lymphocytes 14.9 % (21.0-51.0); %Monocytes 13.1 % (0.0-10.0); %Neutrophils 67.0 % (42.0-75.0); Hematocrit 17.6 % (36.0-47.0); Hemoglobin 5.2 g/dL (12.0-16.0); Mean Corpuscular Hemoglobin 26.7 pg (27.0-31.0); Mean Corpuscular Volume 90.3 fL (78.0-98.0); Platelet Count 148 10x3/uL (130-400); Red Blood Cell (RBC) Count 1.95 mill/uL (4.20-5.40); White Blood Cell (WBC) Count 3.88 10x3/uL (4.8-10.8)
[2025-06-15] MEDS: Pantoprazole 80 MG, Admixture Fee 1 EACH in Sodium Chloride 0.9% 100 ML IVPB SCH (18:40)
[2025-06-15] MEDS ORDERED: Pantoprazole 40 MG VIAL IVP SCH (21:00)
[2025-06-15] MEDS: Acetaminophen 325 MG TAB PO PRN (23:37)
[2025-06-16 03:14] LABS: #Basophils Less than 0.03 10x3/uL (0.0-0.2); #Eosinophils 0.24 10x3/uL (0.0-0.7); #Monocytes 0.43 10x3/uL (0.11-0.59); #Neutrophils 3.25 10x3/uL (1.40-6.50); %Basophils 0.4 % (0.0-1.0); %Eosinophils 5.2 % (0.0-10.0); %Lymphocytes 13.5 % (21.0-51.0); %Monocytes 9.4 % (0.0-10.0); %Neutrophils 71.1 % (42.0-75.0); Hematocrit 17.1 % (36.0-47.0); Hemoglobin 5.3 g/dL (12.0-16.0); Mean Corpuscular Hemoglobin 27.7 pg (27.0-31.0); Mean Corpuscular Volume 89.5 fL (78.0-98.0); Platelet Count 129 10x3/uL (130-400); Red Blood Cell (RBC) Count 1.91 mill/uL (4.20-5.40); White Blood Cell (WBC) Count 4.58 10x3/uL (4.8-10.8)
[2025-06-16] MEDS ORDERED: PROPOFOL 20 ML ONE (09:00)
[2025-06-16] MEDS ORDERED: Ketamine In 0.9 % NaCl 50 MG/5 ML SYRINGE ONE (09:12)
[2025-06-16] MEDS ORDERED: PHENYLEPHRINE-NS 100 MCG/ML 10 ML SYRINGE ONE (09:24)
[2025-06-16] MEDS ORDERED: PROPOFOL 200 MG/20 ML VIAL ONE (09:28)
[2025-06-16] MEDS: NIFEdipine XL 60 MG ER.TAB PO SCH (10:36)
[2025-06-16] MEDS: Ezetimibe 10 MG TAB PO SCH (10:36)
[2025-06-16] MEDS: Amiodarone 200 MG TAB PO SCH (10:37)
[2025-06-16] MEDS: Losartan 25 MG TAB PO SCH (10:38)
[2025-06-16 17:38] LABS: #Basophils 0.05 10x3/uL (0.0-0.2); #Eosinophils 0.23 10x3/uL (0.0-0.7); #Monocytes 0.50 10x3/uL (0.11-0.59); #Neutrophils 3.96 10x3/uL (1.40-6.50); %Basophils 0.9 % (0.0-1.0); %Eosinophils 4.3 % (0.0-10.0); %Lymphocytes 11.0 % (21.0-51.0); %Monocytes 9.3 % (0.0-10.0); %Neutrophils 74.1 % (42.0-75.0); Hematocrit 24.9 % (36.0-47.0); Hemoglobin 8.1 g/dL (12.0-16.0); Mean Corpuscular Hemoglobin 28.8 pg (27.0-31.0); Mean Corpuscular Volume 88.6 fL (78.0-98.0); Platelet Count 128 10x3/uL (130-400); Red Blood Cell (RBC) Count 2.81 mill/uL (4.20-5.40); White Blood Cell (WBC) Count 5.35 10x3/uL (4.8-10.8)
[2025-06-16 17:44] LABS: Glucose 210 mg/dL (83-110)
[2025-06-16] MEDS: GoLYTELY 4,000 ml Bottle PO SCH (18:15)
[2025-06-16 20:24] LABS: Hematocrit 25.9 % (36.0-47.0); Hemoglobin 8.5 g/dL (12.0-16.0); Platelet Count 123 10x3/uL (130-400)
[2025-06-16] MEDS ORDERED: Nystatin Powder 15 GM BOT TOP PRN (21:33)
[2025-06-17 07:18] LABS: Anion Gap 16 mmol/L (10-20); BUN (Urea Nitrogen) 61 mg/dL (9.8-20.1); Calc. Creatinine Clearance 10 mL/min (70-130); Calcium 7.7 mg/dL (7.8-10.44); Carbon Dioxide 26 mmol/L (23-31); Chloride 97 mmol/L (98-107); Glucose 115 mg/dL (83-110); Potassium 4.9 mmol/L (3.5-5.1); Sodium 134 mmol/L (136-145)
[2025-06-17 07:19] LABS: #Basophils 0.04 10x3/uL (0.0-0.2); #Eosinophils 0.32 10x3/uL (0.0-0.7); #Monocytes 0.53 10x3/uL (0.11-0.59); #Neutrophils 3.44 10x3/uL (1.40-6.50); %Basophils 0.8 % (0.0-1.0); %Eosinophils 6.3 % (0.0-10.0); %Lymphocytes 14.1 % (21.0-51.0); %Monocytes 10.5 % (0.0-10.0); %Neutrophils 68.1 % (42.0-75.0); Hematocrit 24.9 % (36.0-47.0); Hemoglobin 8.2 g/dL (12.0-16.0); Mean Corpuscular Hemoglobin 29.0 pg (27.0-31.0); Mean Corpuscular Volume 88.0 fL (78.0-98.0); Platelet Count 110 10x3/uL (130-400); Red Blood Cell (RBC) Count 2.83 mill/uL (4.20-5.40); White Blood Cell (WBC) Count 5.05 10x3/uL (4.8-10.8)
[2025-06-17] MEDS ORDERED: Ketamine In 0.9 % NaCl 50 MG/5 ML SYRINGE ONE (09:09)
[2025-06-17] MEDS ORDERED: PROPOFOL 20 ML ONE ×2 (09:09→10:14)
[2025-06-17] MEDS ORDERED: Lidocaine 1% PF 5 ML VIAL ONE (09:09)
[2025-06-17] MEDS ORDERED: PROPOFOL 200 MG/20 ML VIAL ONE (10:14)
[2025-06-17] MEDS: Pantoprazole 40 MG VIAL IVP SCH (11:17)
[2025-06-17 12:14] LABS: Anisocytosis SLIGHT = 6-15 cells HPF (0-5); Macrocytosis SLIGHT = 6-15 cells HPF (0-5); Platelet Adequacy Comment Platelets Decreased; Polychromasia MODERATE = 3-4 cells HPF (0-2); Schistocytes SLIGHT = 2-5 cells HPF (0-1); Smudge Cells 8.1 %
[2025-06-17] MEDS: EPOETIN ALFA-EPBX (ESRD) 10,000 UNITS/ML VIAL IVP SCH (19:23)
[2025-06-18 05:10] LABS: Anion Gap 12 mmol/L (10-20); BUN (Urea Nitrogen) 31 mg/dL (9.8-20.1); Calc. Creatinine Clearance 13 mL/min (70-130); Calcium 7.6 mg/dL (7.8-10.44); Carbon Dioxide 30 mmol/L (23-31); Chloride 99 mmol/L (98-107); Glucose 164 mg/dL (83-110); Potassium 3.9 mmol/L (3.5-5.1); Sodium 137 mmol/L (136-145)
[2025-06-18 05:14] LABS: #Basophils 0.03 10x3/uL (0.0-0.2); #Eosinophils 0.24 10x3/uL (0.0-0.7); #Monocytes 0.39 10x3/uL (0.11-0.59); #Neutrophils 2.60 10x3/uL (1.40-6.50); %Basophils 0.8 % (0.0-1.0); %Eosinophils 6.5 % (0.0-10.0); %Lymphocytes 11.2 % (21.0-51.0); %Monocytes 10.6 % (0.0-10.0); %Neutrophils 70.9 % (42.0-75.0); Hematocrit 24.8 % (36.0-47.0); Hemoglobin 8.2 g/dL (12.0-16.0); Mean Corpuscular Hemoglobin 29.2 pg (27.0-31.0); Mean Corpuscular Volume 88.3 fL (78.0-98.0); Platelet Count 111 10x3/uL (130-400); Red Blood Cell (RBC) Count 2.81 mill/uL (4.20-5.40); White Blood Cell (WBC) Count 3.67 10x3/uL (4.8-10.8)
[2025-06-18] MEDS: Apixaban 2.5 MG TAB PO SCH ×2 (10:42→20:13)
[2025-06-18 17:08] LABS: Hematocrit 24.8 % (36.0-47.0); Hemoglobin 8.1 g/dL (12.0-16.0)
[2025-06-19 04:31] LABS: #Basophils Less than 0.03 10x3/uL (0.0-0.2); #Eosinophils 0.18 10x3/uL (0.0-0.7); #Monocytes 0.41 10x3/uL (0.11-0.59); #Neutrophils 2.21 10x3/uL (1.40-6.50); %Basophils 0.6 % (0.0-1.0); %Eosinophils 5.3 % (0.0-10.0); %Lymphocytes 16.0 % (21.0-51.0); %Monocytes 12.2 % (0.0-10.0); %Neutrophils 65.6 % (42.0-75.0); Hematocrit 24.2 % (36.0-47.0); Hemoglobin 7.9 g/dL (12.0-16.0); Mean Corpuscular Hemoglobin 29.4 pg (27.0-31.0); Mean Corpuscular Volume 90.0 fL (78.0-98.0); Platelet Count 117 10x3/uL (130-400); Red Blood Cell (RBC) Count 2.69 mill/uL (4.20-5.40); White Blood Cell (WBC) Count 3.37 10x3/uL (4.8-10.8)
[2025-06-19 04:45] LABS: Anion Gap 10 mmol/L (10-20); BUN (Urea Nitrogen) 44 mg/dL (9.8-20.1); Calc. Creatinine Clearance 10 mL/min (70-130); Calcium 7.8 mg/dL (7.8-10.44); Carbon Dioxide 26 mmol/L (23-31); Chloride 100 mmol/L (98-107); Glucose 128 mg/dL (83-110); Potassium 4.0 mmol/L (3.5-5.1); Sodium 132 mmol/L (136-145)
[2025-06-19] MEDS: Lactulose 20 GM (30 mL) UDCUP PO SCH (12:40)
[2025-06-19] MEDS: oxyCODONE/Acetaminophen 5 mg/325 mg Tablet PO PRN (15:50)
[2025-06-20 05:20] LABS: Anion Gap 11 mmol/L (10-20); BUN (Urea Nitrogen) 29 mg/dL (9.8-20.1); Calc. Creatinine Clearance 14 mL/min (70-130); Calcium 8.0 mg/dL (7.8-10.44); Carbon Dioxide 29 mmol/L (23-31); Chloride 100 mmol/L (98-107); Glucose 140 mg/dL (83-110); Potassium 4.1 mmol/L (3.5-5.1); Sodium 136 mmol/L (136-145)
[2025-06-20 05:36] LABS: #Basophils 0.03 10x3/uL (0.0-0.2); #Eosinophils 0.16 10x3/uL (0.0-0.7); #Monocytes 0.33 10x3/uL (0.11-0.59); #Neutrophils 1.85 10x3/uL (1.40-6.50); %Basophils 1.0 % (0.0-1.0); %Eosinophils 5.5 % (0.0-10.0); %Lymphocytes 17.9 % (21.0-51.0); %Monocytes 11.4 % (0.0-10.0); %Neutrophils 63.9 % (42.0-75.0); Hematocrit 23.6 % (36.0-47.0); Hemoglobin 7.6 g/dL (12.0-16.0); Mean Corpuscular Hemoglobin 29.1 pg (27.0-31.0); Mean Corpuscular Volume 90.4 fL (78.0-98.0); Platelet Count 84 10x3/uL (130-400); Red Blood Cell (RBC) Count 2.61 mill/uL (4.20-5.40); White Blood Cell (WBC) Count 2.90 10x3/uL (4.8-10.8)
[2025-06-20] MEDS: Lactulose 20 GM (30 mL) UDCUP PO SCH (12:33)
[2025-06-20 15:35] LABS: Hematocrit 26.3 % (36.0-47.0); Hemoglobin 8.5 g/dL (12.0-16.0)
[2025-06-20] MEDS: Apixaban 2.5 MG TAB PO SCH (20:54)
[2025-06-21 05:09] LABS: Anion Gap 9 mmol/L (10-20); BUN (Urea Nitrogen) 38 mg/dL (9.8-20.1); Calc. Creatinine Clearance 11 mL/min (70-130); Calcium 8.1 mg/dL (7.8-10.44); Carbon Dioxide 31 mmol/L (23-31); Chloride 99 mmol/L (98-107); Glucose 132 mg/dL (83-110); Potassium 4.2 mmol/L (3.5-5.1); Sodium 135 mmol/L (136-145)
[2025-06-21 05:24] LABS: #Basophils 0.03 10x3/uL (0.0-0.2); #Eosinophils 0.17 10x3/uL (0.0-0.7); #Monocytes 0.45 10x3/uL (0.11-0.59); #Neutrophils 1.80 10x3/uL (1.40-6.50); %Basophils 1.0 % (0.0-1.0); %Eosinophils 5.7 % (0.0-10.0); %Lymphocytes 17.2 % (21.0-51.0); %Monocytes 15.2 % (0.0-10.0); %Neutrophils 60.6 % (42.0-75.0); Hematocrit 23.8 % (36.0-47.0); Hemoglobin 7.6 g/dL (12.0-16.0); Mean Corpuscular Hemoglobin 28.8 pg (27.0-31.0); Mean Corpuscular Volume 90.2 fL (78.0-98.0); Platelet Count 121 10x3/uL (130-400); Red Blood Cell (RBC) Count 2.64 mill/uL (4.20-5.40); White Blood Cell (WBC) Count 2.97 10x3/uL (4.8-10.8)
[2025-06-21 13:39] VITALS: BMI 35.4
[2025-06-21] MEDS: EPOETIN ALFA-EPBX (ESRD) 10,000 UNITS/ML VIAL IVP SCH (14:09)
[2025-06-21] MEDS: Senokot S 8.6-50 MG TAB PO SCH (20:59)
[2025-06-21 21:56] LABS: Hematocrit 29.1 % (36.0-47.0); Hemoglobin 9.6 g/dL (12.0-16.0)
[2025-06-22 11:16] LABS: Hematocrit 27.6 % (36.0-47.0); Hemoglobin 8.8 g/dL (12.0-16.0)
[2025-06-22 21:18] LABS: Hematocrit 28.0 % (36.0-47.0); Hemoglobin 8.9 g/dL (12.0-16.0)
[2025-06-23] MEDS: Benzonatate 100 MG CAP PO SCH (05:04)
[2025-06-23 05:20] LABS: #Basophils 0.03 10x3/uL (0.0-0.2); #Eosinophils 0.15 10x3/uL (0.0-0.7); #Monocytes 0.40 10x3/uL (0.11-0.59); #Neutrophils 2.22 10x3/uL (1.40-6.50); %Basophils 0.9 % (0.0-1.0); %Eosinophils 4.5 % (0.0-10.0); %Lymphocytes 16.7 % (21.0-51.0); %Monocytes 11.9 % (0.0-10.0); %Neutrophils 66.0 % (42.0-75.0); Hematocrit 27.0 % (36.0-47.0); Hemoglobin 8.5 g/dL (12.0-16.0); Mean Corpuscular Hemoglobin 28.5 pg (27.0-31.0); Mean Corpuscular Volume 90.6 fL (78.0-98.0); Platelet Count 152 10x3/uL (130-400); Red Blood Cell (RBC) Count 2.98 mill/uL (4.20-5.40); White Blood Cell (WBC) Count 3.36 10x3/uL (4.8-10.8)
[2025-06-23 05:44] LABS: Anion Gap 8 mmol/L (10-20); BUN (Urea Nitrogen) 33 mg/dL (9.8-20.1); Calc. Creatinine Clearance 11 mL/min (70-130); Calcium 8.2 mg/dL (7.8-10.44); Carbon Dioxide 29 mmol/L (23-31); Chloride 100 mmol/L (98-107); Glucose 127 mg/dL (83-110); Magnesium 2.0 mg/dL (1.6-2.6); Potassium 4.0 mmol/L (3.5-5.1); Sodium 133 mmol/L (136-145)
[2025-06-23] MEDS: Senokot S 8.6-50 MG TAB PO SCH (20:56)
[2025-06-23] MEDS: HYDROcodone/Acetaminophen 5/325 mg Tablet PO SCH (21:32)
[2025-06-24 05:58] LABS: #Basophils 0.03 10x3/uL (0.0-0.2); #Eosinophils 0.19 10x3/uL (0.0-0.7); #Monocytes 0.34 10x3/uL (0.11-0.59); #Neutrophils 1.91 10x3/uL (1.40-6.50); %Basophils 1.0 % (0.0-1.0); %Eosinophils 6.0 % (0.0-10.0); %Lymphocytes 21.3 % (21.0-51.0); %Monocytes 10.8 % (0.0-10.0); %Neutrophils 60.6 % (42.0-75.0); Hematocrit 27.9 % (36.0-47.0); Hemoglobin 8.9 g/dL (12.0-16.0); Mean Corpuscular Hemoglobin 28.9 pg (27.0-31.0); Mean Corpuscular Volume 90.6 fL (78.0-98.0); Platelet Count 175 10x3/uL (130-400); Red Blood Cell (RBC) Count 3.08 mill/uL (4.20-5.40); White Blood Cell (WBC) Count 3.15 10x3/uL (4.8-10.8)
[2025-06-24 06:17] LABS: ALT (SGPT) 13 U/L (Less than 34); AST (SGOT) 20 U/L (11-34); Albumin 2.6 g/dL (3.1-4.5); Alkaline Phosphatase 51 U/L (40-110); Anion Gap 7 mmol/L (10-20); BUN (Urea Nitrogen) 45 mg/dL (9.8-20.1); Bilirubin, Total 0.4 mg/dL (0.3-1.2); Calc. Creatinine Clearance 9 mL/min (70-130); Calcium 8.2 mg/dL (7.8-10.44); Carbon Dioxide 28 mmol/L (23-31); Chloride 99 mmol/L (98-107); Globulin 2.6 g/dL (2.4-3.5); Glucose 117 mg/dL (83-110); Potassium 4.4 mmol/L (3.5-5.1); Sodium 130 mmol/L (136-145)
[2025-06-25 04:20] LABS: #Basophils 0.03 10x3/uL (0.0-0.2); #Eosinophils 0.14 10x3/uL (0.0-0.7); #Monocytes 0.47 10x3/uL (0.11-0.59); #Neutrophils 2.51 10x3/uL (1.40-6.50); %Basophils 0.8 % (0.0-1.0); %Eosinophils 3.7 % (0.0-10.0); %Lymphocytes 15.5 % (21.0-51.0); %Monocytes 12.6 % (0.0-10.0); %Neutrophils 67.1 % (42.0-75.0); Hematocrit 28.7 % (36.0-47.0); Hemoglobin 9.2 g/dL (12.0-16.0); Mean Corpuscular Hemoglobin 29.1 pg (27.0-31.0); Mean Corpuscular Volume 90.8 fL (78.0-98.0); Platelet Count 173 10x3/uL (130-400); Red Blood Cell (RBC) Count 3.16 mill/uL (4.20-5.40); White Blood Cell (WBC) Count 3.74 10x3/uL (4.8-10.8)
[2025-06-25 04:44] LABS: ALT (SGPT) 13 U/L (Less than 34); AST (SGOT) 19 U/L (11-34); Albumin 2.6 g/dL (3.1-4.5); Alkaline Phosphatase 65 U/L (40-110); Anion Gap 12 mmol/L (10-20); BUN (Urea Nitrogen) 29 mg/dL (9.8-20.1); Bilirubin, Total 0.4 mg/dL (0.3-1.2); Calc. Creatinine Clearance 12 mL/min (70-130); Calcium 8.2 mg/dL (7.8-10.44); Carbon Dioxide 29 mmol/L (23-31); Chloride 100 mmol/L (98-107); Globulin 2.6 g/dL (2.4-3.5); Glucose 101 mg/dL (83-110); Potassium 3.9 mmol/L (3.5-5.1); Sodium 137 mmol/L (136-145)
[2025-06-26 15:34] VITALS: BP 150/68; TEMP 98.2
== END 2025-06-26 15:35 | DRG 377 ==
LOC: 2NO 14:34 → MSONC 06-22 18:31
PROVIDERS: ADMIT Family Medicine; ATTEND Family Medicine
PROC: 0DJ08ZZ Inspection of Upper Intestinal Tract, Via Natural or Artificial Opening Endoscopic (ICD-10-PCS; principal; 2025-06-16)
PROC: 30233N1 Transfusion of Nonautologous Red Blood Cells into Peripheral Vein, Percutaneous Approach (ICD-10-PCS; 2025-06-16)
PROC: 0W3P8ZZ Control Bleeding in Gastrointestinal Tract, Via Natural or Artificial Opening Endoscopic (ICD-10-PCS; 2025-06-17)
DX: K31.811 Angiodysplasia of stomach and duodenum with bleeding (principal); N18.6 End stage renal disease; I13.2 Hypertensive heart and chronic kidney disease with heart failure and with stage 5 chronic kidney disease, or end stage renal disease; I50.32 Chronic diastolic (congestive) heart failure; D62 Acute posthemorrhagic anemia; K63.3 Ulcer of intestine; I48.0 Paroxysmal atrial fibrillation; I25.10 Atherosclerotic heart disease of native coronary artery without angina pectoris; Z88.0 Allergy status to penicillin; Z88.2 Allergy status to sulfonamides; E11.51 Type 2 diabetes mellitus with diabetic peripheral angiopathy without gangrene; Z99.2 Dependence on renal dialysis; Z98.890 Other specified postprocedural states; D63.1 Anemia in chronic kidney disease; K63.5 Polyp of colon; K44.9 Diaphragmatic hernia without obstruction or gangrene; K57.30 Diverticulosis of large intestine without perforation or abscess without bleeding; K64.8 Other hemorrhoids; Z86.73 Personal history of transient ischemic attack (TIA), and cerebral infarction without residual deficits; K59.00 Constipation, unspecified
CPT/HCPCS: 36415; 36416; 36430; 74018; 80048; 80053; 82947; 83735; 85014; 85018; 85025; 86850; 86900; 86901; 86922; 90935; 94640; G0257; J1815; J2250; J2272; J2470; J2704; J3490; J7626; P9016; Q5105